=== PATIENT | male | born 1975 | race Caucasian/White ===

== ENCOUNTER → 2020-03-05 13:28 | Outpatient (BNVA) | payer OTHER, SELFPAY | PROVIDERS: PCP Internal Medicine Geriatric Medicine; Visit Provider Surgery | DX: Z76.89 Persons encountering health services in other specified circumstances (principal) ==

== ENCOUNTER 2020-03-13 10:36 | Outpatient (REF) | payer OTHER, SELFPAY ==
--- NOTE | 2020-03-13 | CT_ITS ---
EXAMINATION: CT ABDOMEN AND PELVIS WITHOUT CONTRAST CLINICAL INFORMATION: Inguinal hernia. COMPARISON: Previous abdominal ultrasound February 2017 TECHNIQUE: Multidetector volumetric imaging was performed from the superior aspect of the liver through the pubic symphysis. Sagittal and coronal reformatted images were obtained on the technologist's workstation. This CT examination was performed using dose optimization techniques as appropriate, variously including the following: *Automated exposure control *Adjustment of mA and/or kV according to patient size (this includes techniques or standardized protocols for targeted exams where dose is matched to indication/reason for exam; i.e. extremities or head) *Use of iterative reconstruction technique DLP: 457 mGy-cm FINDINGS: LUNG BASES: The visualized lung bases are unremarkable. LIVER, GALLBLADDER AND BILIARY TREE: The liver is normal in size, shape and attenuation. No focal hepatic lesion or biliary ductal dilatation is present. The gallbladder is unremarkable with no evidence of radiopaque gallstones, gallbladder wall thickening, or obvious pericholecystic inflammatory changes. PANCREAS: Unremarkable. SPLEEN: Unremarkable. ADRENAL GLANDS: Unremarkable. KIDNEYS AND URETERS: The kidneys are normal in size, shape and attenuation. No hydronephrosis, hydroureter or calculi seen. No perinephric stranding. BLADDER: Unremarkable. GASTROINTESTINAL TRACT: There is stool throughout the colon questionable for constipation. The small and large bowel are otherwise unremarkable. The appendix is unremarkable. The stomach is unremarkable. ABDOMINAL WALL: There is bilateral inguinal bulge. A definite inguinal hernia is not seen. There is a small umbilical hernia containing fat. LYMPH NODES: Normal. VASCULAR: Unremarkable. PELVIC VISCERA: Unremarkable. OSSEOUS STRUCTURES: There are degenerative changes of the lumbar spine. CT/CT abdomen pelvis wo con IMPRESSION: Bilateral inguinal bulge. No definite inguinal hernia. Small umbilical hernia containing fat. Stool throughout the colon questionable for constipation.
[2020-03-13] MEDS: Barium Sulfate Oral (Vanilla) 450 ML ORAL.SUSP 900 ML PO (09:41)
== END 2020-03-13 10:37 | disposition home or self-care (01) ==
LOC: HO.CT 10:36
PROVIDERS: PCP Internal Medicine Geriatric Medicine; Visit Provider Surgery
DX: K40.90 Unilateral inguinal hernia, without obstruction or gangrene, not specified as recurrent (principal)
CPT/HCPCS: 74176

== ENCOUNTER 2020-03-14 13:15 | Outpatient (REF) | payer OTHER, SELFPAY ==
--- NOTE | 2020-03-14 13:26 | XR_ITS ---
EXAMINATION: XR CHEST CLINICAL INFORMATION: Cough and wheezing. COMPARISON: None TECHNIQUE: 2 views of the chest were obtained. FINDINGS: The lungs are well-expanded and clear. The heart size and pulmonary vascularity is normal. There is mild dextroscoliosis of mid dorsal spine. No lytic process seen. XR/XR chest 2V IMPRESSION: Clear lungs. No acute process seen.
== END 2020-03-14 13:16 | disposition home or self-care (01) ==
LOC: HO.XRAY 13:15
PROVIDERS: PCP Internal Medicine Geriatric Medicine; Visit Provider Internal Medicine Geriatric Medicine
DX: R05 Cough (principal); R06.2 Wheezing
CPT/HCPCS: 71046

== ENCOUNTER 2020-12-25 08:30 | Outpatient (REF) | payer OTHER, SELFPAY ==
--- NOTE | ~2020-12-25 | US_ITS ---
EXAMINATION: US ABDOMEN LIMITED CLINICAL INFORMATION: Fatty liver. COMPARISON: CT abdomen and pelvis 03/13/2020. Ultrasound abdomen complete 03/05/2017. TECHNIQUE: Real-time imaging of the right upper quadrant abdominal viscera. FINDINGS: PANCREAS: Not well seen due to overlying bowel gas. LIVER: The liver is normal in size. The liver contour is normal. Increased hepatic parenchymal echogenicity. No focal hepatic lesion. There is no intrahepatic biliary duct dilatation seen. GALLBLADDER: Mildly contracted. No cholelithiasis, gallbladder wall thickening, or pericholecystic free fluid to suggest acute cholecystitis. COMMON BILE DUCT: Normal in caliber measuring 0.3 cm in diameter. RIGHT KIDNEY: Normal. No hydronephrosis. No renal calculi or focal parenchymal lesions. The kidney measures 12.0 cm in maximum dimension. FREE FLUID: None. US/US abdomen limited IMPRESSION: Increased hepatic parenchymal echogenicity, which can be seen in the setting of steatosis. Underlying hepatocellular disease cannot be excluded. No hepatic parenchymal lesion or biliary ductal dilatation.
== END 2020-12-25 08:31 | disposition home or self-care (01) ==
LOC: HO.US 08:30
PROVIDERS: PCP Internal Medicine Geriatric Medicine; Visit Provider Internal Medicine Geriatric Medicine
DX: K76.0 Fatty (change of) liver, not elsewhere classified (principal)
CPT/HCPCS: 76705

== ENCOUNTER 2022-11-23 14:46 | Outpatient (AMB) | payer OTHER, SELFPAY ==
--- NOTE | 2022-11-23 14:50 | MHC.OFFVIS ---
Intake Vital Signs 11/23/22 14:51 Height 5 ft 7 in Weight 212 lb 15.465 oz BMI 33.4 BP 140/83 H Blood Pressure Location Lt brachial Position Sitting Pulse 62 Intake Visit Reasons: colonoscopy screening Intake Note: Jin presents in office as a new.patient for a colonoscopy screening. PT CC: pt reports having no concerns pt denies any other GI Issues Photographer Lithographic Required: No Accompanied by: Self / Same As Patient Allergies bee pollen [BEE STINGS] Allergy (Severe, Unverified 11/23/22 14:50) ANAPHYLAXIS HPI colonoscopy screening HPI Details 47 year old? male here today for pre colonoscopy screening.? Patient was sent to us by his PCP.? This is his first colonoscopy screening.? Patient denies any gastrointestinal symptoms in the past or at present.? Denies any personal or family history of gastrointestinal disease, colon polyps, or cancer.? Denies history of difficulty with sedation or anesthesia in the past.? Negative for history of sleep apnea.? Denies any history of cardiac, renal, pulmonary, or hepatic disease.?? No history of infectious? diseases like hepatitis A, B, C, HIV or tuberculosis.? Patient is not on any anticoagulation therapy. [facility] Surgical History History of arthroplasty of left knee History of right inguinal hernia repair (~06/21/11) Social History Alcohol intake: never Review of Systems Const Denies weight gain and Denies weight loss ENT Reports no additional complaints, Denies dysphagia and Denies odynophagia Card Reports no additional complaints Resp Reports no additional complaints GI Denies abdominal pain, Denies belching, Denies melena, Denies bloating, Denies change in bowel habits, Denies dysphagia, Denies excessive flatus, Denies dyspepsia, Denies heartburn, Denies diarrhea, Denies loose stools, Denies nausea, Denies odynophagia and Denies vomiting Reports no additional complaints Musc Reports no additional complaints Neuro Reports no additional complaints Psych Reports no additional complaints Endo Reports no additional complaints Physical Exam Vital Signs: Last Vital Signs Pulse 62 11/23/22 14:51 BP 140/83 H 11/23/22 14:51 BMI result Body Mass Index 33.4 Const General: healthy appearing, no acute distress and well developed Nutritional Appearance: obese Orientation/consciousness: patient oriented x3 HEENT Head: Yes normal to inspection, Yes normocephalic and Yes atraumatic Face and sinus: Yes normal facial exam Mouth: Normal oral and palatal mucosa present Throat: Yes posterior oropharynx normal, Yes tonsils normal and Yes uvula midline Eyes General: appearance normal, both eyes and all related structures Neck Neck: Yes normal visual inspection, Yes full ROM and Yes trachea midline Thyroid: Thyroid normal Resp Effort & Inspection: normal respiratory effort, able to speak in complete sentences, no tracheal deviation and symmetric chest movement Auscultation: clear to auscultation bilaterally Cardio Rate: regular rate Heart sounds: S1 normal heart sound present and S2 normal heart sound present GI Inspection: Yes normal to inspection, No distended and Yes obesity Palpation (GI): Soft to palpation, not firm, nontender and No hepatosplenomegaly present Auscultation: normal bowel sounds General: Yes no CVA tenderness Back/Spine/Pelvis Back: no CVA tenderness Skin General skin exam: elasticity normal, turgor normal and dry skin Neuro General: patient oriented x3 Psych Appearance: grossly normal Mental Status: mental status grossly normal Speech and movement: Normal speech and movement present Assessment & Plan Assessment & Plan (1) Screen for colon cancer: Code(s): Z12.11 - Encounter for screening for malignant neoplasm of colon Plan: Patient denies any GI, cardiac or respiratory symptoms.? Denies any issues with anesthesia in the past.? Denies any history of sleep apnea.? No history infectious diseases in the past or present.? Not on any anticoagulation therapy.? No family or personal history of colon cancer or polyps.? Patient denies melena, hematochezia, unintentional weight loss or ribbon like stools.? Discussed at length the pre-procedure,? prep, diet & medications as well as what to expect prior, during and after the procedure.?? Stressed the importance of good bowel prep. ?Recommended the use of Vaseline or Calmoseptine OTC & baby wipes with bowel movements to promote comfort.? ?Patient verbalizes understanding and agrees to plan of care.? He was given the opportunity to ask questions and all questions answered.? We will see him after the procedure.? Medications: New bisacodyl (Dulcolax (bisacodyl)) take 2 tabs at noon the day before your colonoscopy 10 mg (2 x 5 mg) PO ONCE 2 tabs 0RF 1 day Z12.11 - Encounter for screening for malignant neoplasm of colon polyethylene glycol 3350 (Miralax) As directed by gastroenterology department at [facility] 238 grams PO ONCE 238 grams 0RF Z12.11 - Encounter for screening for malignant neoplasm of colon Coding Level of Care Code New Pt Level 3 (56476) Diagnoses Screen for colon cancer Z12.11 Time Spent (min) 40 Comment 30 minutes spent with patient and additional 10 minutes spent reviewing his records
[2022-11-23 14:51] VITALS: BP 140/83; PULSE 62; BMI 33.4
== END 2022-11-23 15:33 | disposition home or self-care (01) ==
PROVIDERS: PCP Internal Medicine Geriatric Medicine; Visit Provider Nurse Practitioner Family
DX: Z01.818 Encounter for other preprocedural examination (principal); Z12.11 Encounter for screening for malignant neoplasm of colon
CPT/HCPCS: 99203

== ENCOUNTER → 2022-11-23 14:46 | Outpatient (BNVA) | payer OTHER, SELFPAY | PROVIDERS: PCP Internal Medicine Geriatric Medicine; Visit Provider Nurse Practitioner Family ==

== ENCOUNTER 2023-06-18 08:59 | Day surgery (SDC) | payer OTHER, SELFPAY ==
[2023-06-16 14:07] VITALS: BMI 33.2
--- NOTE | 2023-06-17 12:00 | P.CONAN_ITS ---
HPI - Anesthesia Eval Consult details Narrative: 48yo M for Colonoscopy [facility] Active Problems Active Problems: All Active Problems (Updated 03/05/20 @ 14:06 by Matt Irizarry MD) Right inguinal hernia (Acute) Surgical History Surgical History History of arthroplasty of left knee History of right inguinal hernia repair (~06/21/11) Social History Social History Alcohol intake: never Meds Allergies Allergy/AdvReac Type Severity Reaction Status Date / Time bee pollen [BEE STINGS] Allergy Severe ANAPHYLAXIS Unverified 11/23/22 14:50 Home Medications Medication Instructions Recorded Confirmed Last Taken Type albuterol sulfate 90 mcg/actuation 2 puff PO Q4-6H PRN 03/05/20 Unknown History aerosol inhaler hydroxyzine HCl 25 mg tablet mg PO 03/05/20 Unknown History Exam Height,Weight and Vital Signs: Height 5 ft 7 in Weight 96.162 kg Assessment and Plan Assessment Anesthesia Assessment: Chart Reviewed
[2023-06-18 11:07] VITALS: BMI 32.9
[2023-06-18 11:14] VITALS: BP 135/82; PULSE 71; RESP 16; TEMP 36.3; O2SAT 98
[2023-06-18] MEDS: Lactated Ringers 1,000 ML 100 ML IVCONT (11:35)
--- NOTE | 2023-06-18 11:42 | MHC.SHP ---
Pre-Procedural Eval Section A - 24 Hr Update-Section A only Date of Service: 06/18/23 The patient is an INPATIENT: No The patient has been examined within 24 hours of the surgical procedure. The History & Physical has been completed within 30 days and I have reviewed it.: No Section B - Complete if H&P > 30 days Chief Complaint: Colon cancer screening Relevant Family History (Specify if Yes): No Relevant Social History: None Present Medications: see Short Stay Collaborative assessment Medical History: No relevant PMH History of Previous Operations: Relevant previous surgery/procedure and date(s) (History of arthroplasty of left knee History of right inguinal hernia repair (~06/21/11)) Allergies: Allergies Allergy/AdvReac Type Severity Reaction Status Date / Time bee pollen [BEE STINGS] Allergy Severe ANAPHYLAXIS Verified 06/18/23 11:34 Review of Systems Sugical H&P ROS: Negative: Constitution, Cardiovascular, Respiratory and Gastrointestinal Exam Surgical H&P Exam: Normal: Heart, Normal: Lungs, Normal: Extremities and Normal: Abdomen Plan Diagnosis/Plan: Unchanged I have reviewed the history and physical and performed a pertinent physical examination on my patient. No changes have occurred unless specified. Time Spent With Patient Time: Total time managing care of this patient today ____ minutes.
--- NOTE | 2023-06-18 13:08 | P.OP_ITS ---
Operative Note Operative Note Date of Service: 06/18/23 Narrative: COLONOSCOPY TILL CECUM WITH SNARE POLYPECTOMY Pre-op diagnosis: Colon cancer screening Post-op diagnosis:?Colon polyps, diverticulosis, hemorrhoids Endoscopist:? Hermila Diaz MD Anesthesia:?MAC Consent: Indications for the procedure and potential complications of bleeding, perforation, reaction to medications and missed diagnosis were discussed with the patient and informed consent was obtained. Instrument: Olympus PCF H 190 L variable stiffness pediatric colonoscope Monitoring: Vital signs and clinical assessment, intermittent blood pressure monitoring, continuous EKG monitoring, Pulse oximetry and Carbon Dioxide monitoring were done throughout the procedure. Please see anesthesia flowsheet. Colon withdrawl time was 24 minutes. Procedure: The patient was placed in the left lateral decubitis position and pre-procedure medications were administered. After a digital rectal examination of the ano-rectum, the video colonoscope was inserted into the rectum and advanced through the colon to the cecum. The colonoscope was slowly withdrawn in a retrograde panoramic fashion and the colon mucosa was carefully examined including a retroflexed view of the rectum. Findings and interventions are described below. Procedure Difficulty: Without difficulty Findings: Terminal Ileum: Not evaluated Cecum: Normal Ascending Colon: Normal Transverse Colon: Normal Descending Colon: Moderate diverticulosis Sigmoid Colon: A 12 - 15 mm sessile polyp - removed with a a hot snare. Moderate diverticulosis Rectum: Normal Ano-rectum: Moderate internal hemorrhoids Colon preparation: Good after some irrigation [place] Bowel Preparation Scale Right colon; 2 Transverse colon: 2 Left colon; 2 (0 = Unprepared colon segment with mucosa not seen due to solid stool that cannot be cleared. 1 = Portion of mucosa of the colon segment seen, but other areas of the colon segment not well seen due to staining, residual stool and/or opaque liquid. 2 = Minor amount of residual staining, small fragments of stool and/or opaque liquid, but mucosa of colon segment seen well. 3 = Entire mucosa of colon segment seen well with no residual staining, small fragments of stool or opaque liquid) Impression and Post Procedure Diagnosis: Colonoscopy Findings: One medium sized polyp removed Moderate diverticulosis seen in the left colon Moderate hemorrhoids on retroflexed exam. Plan: Await pathology results Patient has an appointment on 06/29/23 in the GI Clinic with Patricia Peraza FNP- [facility]. Repeat Colonoscopy interval based on path results - in 3-5 years if polyps are adenomatous and 10 years if polyps are hyperplastic. Above findings were reviewed with the patient and colon polyps and diverticulosis handouts were given in the discharge area
--- NOTE | 2023-06-18 13:32 | HO.ANESPROP2 ---
PMFSH Active Problems Active Problems: All Active Problems (Updated 06/18/23 @ 11:05 by Amanda Meadows RN) Right inguinal hernia (Acute) Past Medical History Medical History [place] Family History Family history of problems with anesthesia: No Surgical History Surgical History History of right inguinal hernia repair (~06/21/11) History of arthroplasty of left knee History of Problems with Anesthesia: No Social History Social History Alcohol intake: never Patient Tobacco Use Status: Former Tobacco user Use of substances other than those prescribed or required for medical reasons: No Are you DNR?: No Advance Directives: No Advance Directives Information Provided: Yes Meds Allergies Allergy/AdvReac Type Severity Reaction Status Date / Time bee pollen [BEE STINGS] Allergy Severe ANAPHYLAXIS Verified 06/18/23 11:34 Active Medications: Current Medications Lactated Ringer's (Lr) 1,000 mls @ 100 mls/hr IVCONT .Q10H STEVEN Last Admin: 06/18/23 11:35 Dose: 100 mls/hr Home Medications Medication Instructions Recorded Confirmed Last Taken Type hydroxyzine HCl 25 mg tablet mg PO 03/05/20 Unknown History Exam Height,Weight and Vital Signs: Height 5 ft 7 in Weight 95.311 kg Last Vital Signs Temp 97.3 F 06/18/23 11:14 Pulse 71 06/18/23 11:14 Resp 16 06/18/23 11:14 BP 135/82 06/18/23 11:14 Pulse Ox 98 06/18/23 11:14 O2 Del Method Room Air 06/18/23 11:14 Airway Mallampati Class: II TM Dist: >3cm Neck ROM: Full Heart: RRR Lungs: CTA Assessment and Plan Assessment Anesthesia Assessment: Anesthesia Plan Discussed Final Anesthetic Review Family History of Problems with Anesthesia: No History of Problems with Anesthesia: No NPO: Yes ASA Class: II Final Preanesthetic Review: Meds/Allgs Chart Reviewed, Consent Obtained/Reviewed and Anes Risks/Benef Reviewed Patient Risk: Low Anesthetic Plan Anesthetic Plan: MAC: Disposition: Standard PACU
[2023-06-18 13:50] VITALS: BP 92/55; PULSE 84; RESP 16; TEMP 36.2; O2SAT 95
[2023-06-18 14:05] VITALS: BP 109/69; PULSE 82; RESP 16; TEMP 36.3; O2SAT 98
--- NOTE | 2023-06-18 14:07 | HO.POSTANES ---
Post Anesthesia Evaluation Post Anesthesia Evaluation Date of Service: 06/18/23 Vital Signs: Vital Signs Temp Pulse Resp BP Pulse Ox O2 Del Method 06/18/23 13:50 97.1 F 84 16 92/55 L 95 Room Air 06/18/23 11:14 97.3 F 71 16 135/82 98 Room Air Anesthesia: Monitored Mental Status: Awake Pain Control: Satisfactory Nausea/Vomiting: None Hydration: Adequate Anesthesia-Related Issues: No Anes. Related Issues
--- NOTE | 2023-06-18 15:17 | HO.POSTANES ---
Post Anesthesia Evaluation Post Anesthesia Evaluation Date of Service: 06/18/23 Vital Signs: Vital Signs Temp Pulse Resp BP Pulse Ox O2 Del Method 06/18/23 14:05 97.3 F 82 16 109/69 98 Room Air 06/18/23 13:50 97.1 F 84 16 92/55 L 95 Room Air 06/18/23 11:14 97.3 F 71 16 135/82 98 Room Air Anesthesia: Monitored Mental Status: Awake Pain Control: Satisfactory Nausea/Vomiting: None Hydration: Adequate Anesthesia-Related Issues: No Anes. Related Issues
== END 2023-06-18 14:45 | disposition home or self-care (01) ==
PROVIDERS: PCP Internal Medicine Geriatric Medicine; Visit Provider Internal Medicine Gastroenterology
PROC: 0DJD8ZZ Inspection of Lower Intestinal Tract, Via Natural or Artificial Opening Endoscopic (ICD-10-PCS; CPT 45378; principal; 2023-06-18 12:20)
DX: Z12.11 Encounter for screening for malignant neoplasm of colon (principal); K63.5 Polyp of colon; K57.30 Diverticulosis of large intestine without perforation or abscess without bleeding; K64.8 Other hemorrhoids
CPT/HCPCS: 45385; 88305; J2704

== ENCOUNTER → 2023-06-18 08:59 | Outpatient (BNV) | payer OTHER, SELFPAY | PROVIDERS: PCP Internal Medicine Geriatric Medicine; Visit Provider Internal Medicine Gastroenterology | DX: Z12.11 Encounter for screening for malignant neoplasm of colon (principal); K63.5 Polyp of colon; K57.30 Diverticulosis of large intestine without perforation or abscess without bleeding; K64.8 Other hemorrhoids | CPT/HCPCS: 45385 ==

== ENCOUNTER 2023-06-29 07:59 | Outpatient (AMB) | payer OTHER, SELFPAY ==
--- NOTE | 2023-06-29 08:06 | MHC.OFFVIS ---
Intake Vital Signs 06/29/23 08:09 Height 5 ft 7 in Weight 209 lb BMI 32.7 BP 145/90 H Blood Pressure Location Lt brachial Position Sitting Pulse 87 Intake Visit Reasons: S/p colon Intake Note: Patient follow up for Colonoscopy results. Patient cc: abdominal bloating with burping on and off, right abdominal pain come and go. Denies any other GI issues. Deicer Inspector Electric Required: No Accompanied by: Self / Same As Patient Allergies bee pollen [BEE STINGS] Allergy (Severe, Verified 06/29/23 08:06) ANAPHYLAXIS HPI S/p colon HPI Details LAST VISIT Screen for colon cancer Patient denies any GI, cardiac or respiratory symptoms.? Denies any issues with anesthesia in the past.? Denies any history of sleep apnea.? No history infectious diseases in the past or present.? Not on any anticoagulation therapy.? No family or personal history of colon cancer or polyps.? Patient denies melena, hematochezia, unintentional weight loss or ribbon like stools.? Discussed at length the pre-procedure,? prep, diet & medications as well as what to expect prior, during and after the procedure.?? Stressed the importance of good bowel prep. ?Recommended the use of Vaseline or Calmoseptine OTC & baby wipes with bowel movements to promote comfort.? ?Patient verbalizes understanding and agrees to plan of care.? He was given the opportunity to ask questions and all questions answered.? We will see him after the procedure.? Plan Medications New bisacodyl (Dulcolax (bisacodyl)) take 2 tabs at noon the day before your colonoscopy 10 mg (2 x 5 mg) PO ONCE 2 tabs 0RF 1 day Z12.11 - Encounter for screening for malignant neoplasm of colon polyethylene glycol 3350 (Miralax) As directed by gastroenterology department at [facility] 238 grams PO ONCE 238 grams 0RF Z12.11 - Encounter for screening for malignant neoplasm of colon COLONOSCOPY Findings: Terminal Ileum: Not evaluated Cecum: Normal Ascending Colon: Normal Transverse Colon: Normal Descending Colon: Moderate diverticulosis Sigmoid Colon: A 12 - 15 mm sessile polyp - removed with a a hot snare. Moderate diverticulosis Rectum: Normal Ano-rectum: Moderate internal hemorrhoids Colon preparation: Good after some irrigation Saunemin Bowel Preparation Scale Right colon; 2 Transverse colon: 2 Left colon; 2 (0 = Unprepared colon segment with mucosa not seen due to solid stool that cannot be cleared. 1 = Portion of mucosa of the colon segment seen, but other areas of the colon segment not well seen due to staining, residual stool and/or opaque liquid. 2 = Minor amount of residual staining, small fragments of stool and/or opaque liquid, but mucosa of colon segment seen well. 3 = Entire mucosa of colon segment seen well with no residual staining, small fragments of stool or opaque liquid) Impression and Post Procedure Diagnosis: Colonoscopy Findings: One medium sized polyp removed Moderate diverticulosis seen in the left colon Moderate hemorrhoids on retroflexed exam. Plan: Await pathology results Patient has an appointment on 06/29/23 in the GI Clinic with Patricia Peraza FNP-BC. Repeat Colonoscopy interval based on path results - in 3-5 years if polyps are adenomatous and 10 years if polyps are hyperplastic. PATHOLOGY RESULTS Diagnosis Colon, sigmoid, polypectomy: Hyperplastic mucosal polyp. TODAY'S VISIT Patient is here today for follow-up and to discuss colonoscopy results. Patient denies any ill effects from the prep, anesthesia or procedure itself. Patient reports that he has been doing well. Moving his bowels without any issues. Hyperplastic mucosal polyp found in colonoscopy will be repeated in 10 years, sooner if clinically necessary. Patient denies any GI concerning symptoms. Occasional postprandial abdominal bloating. Reports that he is moving his bowels well without any issues. Denies any melena hematochezia, unintentional weight loss or ribbon like stools. Denies any dyspepsia, dysphagia or odynophagia. [facility] Medical History (Updated 06/29/23 @ 08:24 by SEFERINO Garay) Diverticulosis Lipoma Surgical History (Updated 06/29/23 @ 08:07 by Mariah Pagan) Hx of colonoscopy History of right inguinal hernia repair (~06/21/11) History of arthroplasty of left knee Social History Alcohol intake: never Patient Tobacco Use Status: Former Tobacco user Review of Systems Const Denies weight gain and Denies weight loss ENT Reports no additional complaints, Denies dysphagia and Denies odynophagia Card Reports no additional complaints Resp Reports no additional complaints GI Denies abdominal pain, Denies belching, Denies melena, Denies bloating, Denies change in bowel habits, Denies dysphagia, Denies excessive flatus, Denies dyspepsia, Denies heartburn, Denies diarrhea, Denies loose stools, Denies nausea, Denies odynophagia and Denies vomiting Reports no additional complaints Musc Reports no additional complaints Neuro Reports no additional complaints Psych Reports no additional complaints Endo Reports no additional complaints Physical Exam Vital Signs: Last Vital Signs Pulse 87 06/29/23 08:09 BP 145/90 H 06/29/23 08:09 BMI result Body Mass Index 32.7 Const General: healthy appearing, no acute distress and well developed Nutritional Appearance: obese Orientation/consciousness: patient oriented x3 Resp Effort & Inspection: normal respiratory effort, able to speak in complete sentences, no tracheal deviation and symmetric chest movement Auscultation: clear to auscultation bilaterally Cardio Rate: regular rate GI Inspection: Yes normal to inspection, No distended and Yes obesity Palpation (GI): Soft to palpation, not firm, nontender and No hepatosplenomegaly present Auscultation: normal bowel sounds General: Yes no CVA tenderness Back/Spine/Pelvis Back: no CVA tenderness Skin General skin exam: elasticity normal, turgor normal and dry skin Neuro General: patient oriented x3 Psych Appearance: grossly normal Mental Status: mental status grossly normal Assessment & Plan Assessment & Plan (1) Diverticulosis: Code(s): K57.90 - Diverticulosis of intestine, part unspecified, without perforation or abscess without bleeding (2) Internal hemorrhoids without complication: Code(s): K64.8 - Other hemorrhoids (3) Status post colonoscopy: Code(s): Z98.890 - Other specified postprocedural states (4) Postprandial abdominal bloating: Code(s): R14.0 - Abdominal distension (gaseous) Plan Hyperplastic polyp found in sigmoid colon. Colonoscopy in 10 years, sooner if clinically necessary. Patient denies any family history of CRC. High-fiber diet discussed with patient. Patient admits to occasional postprandial abdominal bloating discussed with patient low FODMAP diet. List of food recommended as well as list of food to avoid patient. Patient will follow-up in our office on as needed basis. Patient is agreeable to this plan and verbalizes understanding of instructions. He was given the opportunity to ask questions all questions answered. Thank you for allowing me to participate in his care Medications: New polyethylene glycol 3350 (Miralax) 17 grams PO DAILY 510 grams 2RF K59.00 - Constipation, unspecified Coding Level of Care Code Est Pt Level 3 (86630) Diagnoses Diverticulosis K57.90 Internal hemorrhoids without complication K64.8 Status post colonoscopy Z98.890 Postprandial abdominal bloating R14.0 Time Spent (min) 30 Comment 20 minutes spent with patient and additional 10 minutes spent reviewing his records
[2023-06-29 08:09] VITALS: BP 145/90; PULSE 87; BMI 32.7
== END 2023-06-29 08:37 | disposition home or self-care (01) ==
PROVIDERS: PCP Internal Medicine Geriatric Medicine; Visit Provider Nurse Practitioner Family
DX: K57.90 Diverticulosis of intestine, part unspecified, without perforation or abscess without bleeding (principal); K64.8 Other hemorrhoids; Z98.890 Other specified postprocedural states; R14.0 Abdominal distension (gaseous)
CPT/HCPCS: 99213

== ENCOUNTER → 2023-06-29 07:59 | Outpatient (BNVA) | payer OTHER, SELFPAY | PROVIDERS: PCP Internal Medicine Geriatric Medicine; Visit Provider Nurse Practitioner Family ==

== ENCOUNTER 2023-08-11 09:21 | Outpatient (REF) | payer OTHER, SELFPAY ==
[2023-08-11 11:18] LABS: MANUAL DIFF FLAG NO
[2023-08-11 11:27] LABS: Basophils Percent Auto 0.3 % (0-2); Eosinophils Absolute Auto 0.1 X10*3/uL (0.0-0.4); Hematocrit 46.2 % (42.0-52.0); Hemoglobin 15.8 g/dl (14.0-18.0); Imm Gran Abs Auto 0.01 X10*3/uL (0.00-0.03); Imm Gran Pct Auto 0.2 % (0.0-0.4); Lymphocytes Absolute Auto 2.4 X10*3/uL (1.2-4.9); Mean Corpuscular HGB Conc 34.2 g/dl (31.0-36.0); Mean Corpuscular Hemoglobin 30.5 pg (27.0-33.0); Mean Corpuscular Volume 89.2 fL (80.0-98.0); Mean Platelet Volume 11.5 fL (9.4-12.4); Monocytes Absolute Auto 0.5 X10*3/uL (0.1-1.2); Monocytes Percent Auto 8.5 % (2-11); Neutrophils Absolute Auto 2.8 x10*3/uL (2.0-8.3); Platelet Count 223 X10*3/uL (160-400); Red Blood Count 5.18 X10*6/uL (4.60-5.80); Red Cell Distribution Width 12.5 % (11.0-16.0); White Blood Count 5.8 X10*3/uL (4.8-10.8)
[2023-08-11 12:05] LABS: Alanine Aminotransferase 51 U/L (0-40); Albumin Level 4.5 g/dL (3.5-5.0); Alkaline Phosphatase 58 U/L (39-117); Anion Gap 14 (12-20); Aspartate Amino Transferase 46 U/L (5-37); Bilirubin Total 0.6 mg/dL (0.0-1.0); Blood Urea Nitrogen 21 mg/dL (9-16); Calcium 9.6 mg/dL (8.4-10.2); Carbon Dioxide 24 mmol/L (22-29); Chloride 106 mmol/L (96-108); Cholesterol 213 mg/dL (<200); Estimated Glomerular Filt Rate > 60; Glucose Random 93 mg/dL (60-115); HDL Cholesterol 54 mg/dL (>40); LDL Cholesterol Calculated 117 mg/dL (<100); Potassium 4.5 mmol/L (3.3-5.1); Sodium 139 mmol/L (135-145); Total Protein 8.1 g/dL (6.5-8.0); Triglycerides 213 mg/dL (<150)
== END 2023-08-11 09:22 | disposition home or self-care (01) ==
LOC: HO.HHCL 09:21
PROVIDERS: Visit Provider Internal Medicine Geriatric Medicine
DX: Z00.00 Encounter for general adult medical examination without abnormal findings (principal); Z13.1 Encounter for screening for diabetes mellitus; Z13.220 Encounter for screening for lipoid disorders
CPT/HCPCS: 36415; 80053; 80061; 85025

== ENCOUNTER 2024-01-03 08:29 | Outpatient (REF) | payer OTHER, SELFPAY ==
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
== END 2024-01-03 08:30 | disposition home or self-care (01) ==
LOC: HO.HHCX 08:29
PROVIDERS: Visit Provider Internal Medicine Geriatric Medicine
DX: M79.671 Pain in right foot (principal); G89.29 Other chronic pain
CPT/HCPCS: 73630

== ENCOUNTER 2024-05-02 09:39 | Outpatient (REF) | payer OTHER, SELFPAY ==
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
== END 2024-05-02 09:40 | disposition home or self-care (01) ==
LOC: HO.HHCX 09:39
PROVIDERS: Visit Provider Emergency Medicine
DX: M54.2 Cervicalgia (principal); M54.50 Low back pain, unspecified; V87.7XXD Person injured in collision between other specified motor vehicles (traffic), subsequent encounter
CPT/HCPCS: 72040; 72100

== ENCOUNTER 2024-05-22 07:30 | Outpatient (REF) | payer OTHER, SELFPAY ==
--- NOTE | ~2024-05-22 | US_ITS ---
CLINICAL HISTORY: SOFT TISSUE LUQ MAY BE RELATED TO BOWERL HERNIA US abdomen limited Comparison: [place] - US ABDOMEN LIMITED - 12/25/20 08:[address] - CT ABDOMEN PELVIS WO CON - 03/13/20 09:12 EST Findings: In the area of concern indicated by patient there is no mass, bowel containing hernia, fat containing hernia, lipoma or fluid collection. IMPRESSION: 1. Normal limited abdominal ultrasound. This document has been electronically signed by: Nelda Grace MD on 05/24/2024 05:38:45
== END 2024-05-22 07:31 | disposition home or self-care (01) ==
LOC: HO.US 07:30
PROVIDERS: PCP Internal Medicine Geriatric Medicine; Visit Provider Emergency Medicine
DX: R93.7 Abnormal findings on diagnostic imaging of other parts of musculoskeletal system (principal)
CPT/HCPCS: 76705

== ENCOUNTER → 2024-05-22 07:35 | Outpatient (BNV) | payer OTHER, SELFPAY | PROVIDERS: PCP Internal Medicine Geriatric Medicine; Visit Provider Radiology Diagnostic Radiology | DX: R10.9 Unspecified abdominal pain (principal) | CPT/HCPCS: 76705 ==

== ENCOUNTER 2024-09-21 10:14 | Outpatient (REF) | payer OTHER, SELFPAY ==
--- OUTSIDE RECORDS SUMMARY | 2024-09-21 11:14 | XMS_ITS | Encounter Summary ---
Author Organization [employer] [facility] Address [address] [place] [address] [place] [address] Care Team Providers Care Mortgage Processor Name Role Phone Name, Giovanni WEST Primary Care Provider [phone] Encounter Details Date Type Department Care Team (Latest Contact Info) Description 04/18/2020 Abstract [facility] CONVERSIONS Dental, Provider, DDS Social History Tobacco Use Types Packs/Day Years Used Date Smoking Tobacco: Never Assessed Sex and Gender Information Value Date Recorded Sex Assigned at Male 03/09/2022 10:25 AM EDT Legal Sex Male 10:25 AM EDT Gender Identity Male 03/09/2022 10:25 AM EDT Sexual Orientation Straight 03/09/2022 10 :25 AM EDT documented as of this encounter Plan of Treatment Upcoming Encounters Date Type Department Care Team (Late st Contact Info) Description 10/18/2024 8:00 AM EDT Office Visit [facility] DENTAL [address] [place] [address] Trinidad Smith [address] [place], [place] [phone] 12/27/2024 2:00 PM EDT Office Visit [facility] MEDICINE [address] [place] [address] Giovanni Anthony MD [address] [place] [address] documented as of this encounter Visit Diagnoses Not on filedocumented in this encounter Care Teams Mortgage Processor Relationship Specialty Start Date End Date Giovanni Anthony MD [address] [place] [address] PCP - General Family Medicine 05/29/15 documented as of this encounter
--- OUTSIDE RECORDS SUMMARY | 2024-09-21 11:14 | XMS_ITS | Encounter Summary ---
Author Organization [employer] [facility] Address [address] [place] [address] [place] [address] Care Team Providers Care Certified Professional Midwife Name Role Phone Name, Giovanni WEST Primary Care Provider [phone] Encounter Details Date Type Department Care Team (Latest Contact Info) Description 06/07/2018 Abstract [facility] CONVERSIONS Dental, Provider, DDS Social History Tobacco [...] Description 10/18/2024 8:00 AM EDT Office Visit [facility] DENTAL [address] [place] [address] Trinidad Smith [address] [place], [place] [phone] 12/27/2024 2:00 PM EDT Office Visit [facility] MEDICINE [address] [place] [address] Giovanni Anthony MD [address] [place] [address] documented as of this encounter Visit Diagnoses Not on filedocumented in this encounter Care Teams Certified Professional Midwife Relationship Specialty Start Date End Date Giovanni Anthony MD [address] [place] [address] PCP - General Family Medicine 05/29/15 documented as of this encounter
--- OUTSIDE RECORDS SUMMARY | 2024-09-21 11:14 | XMS_ITS | Encounter Summary ---
Author Organization [employer] Address [address] [facility] [address] [place] [address] Care Team Providers Care Insole Department Worker Name Role Phone Name, Giovanni WEST Primary Care Provider [phone] Reason for Visit * Reason Onset Date Comments CHART PREP 09/20/2024 Encounter Details Date Type Department Care Team ([facility] st Contact Info) Description 09/20/2024 Telephone [facility] MEDICINE [address] [place], [place] [phone] Name, MD Giovanni [address] [place] [address] CHART PREP Social History Tobacco Use Types Packs/Day Years Used Date Smoking Tobacco: Never Smokeless Tobacco: Never Alcohol Use Standard Drinks/Week Comments Yes 0 (1 standard drink = 0.6 oz pur e alcohol) Depression Answer Date Recorded Patient Health Questionnaire-9 Score 0 09/21/2024 Patient Health Questionnaire-9 Score 0 09/21/2024 Last PHQ-9: Questionnaire Data Not on file 0 09/21/2024 Housing Stability Answer Date Recorded What is your housing situation today? I have hamida gao 09/21/[address] you li ve. Do you have problems with any of the following? None of the above 09/21/2024 Food Insecurity Answer Date Recorded Within the past 12 months, y ou worried that your food would run out before you got money to buy more: Never True 09/21/2024 Within the past 12 months,th e food you bought just didn't last and you didn't have enough money to get more: Never True Transportation Answer Date Recorded In the past 12 months, has l ack of transportation kept you from medical appts, meetings, work or from getting things needed for daily living? No 09/21/2024 Utilities Answer Date Recorded In the past 12 months, has t he electric, gas, oil or water company threatened to shut off services in your home? No 09/21/2024 Depression Answer Date Recorded Patient Health Questionnaire-2 Score 0 09/21/2024 Internet Access Answer Date Recorded Internet Access Q1 Yes 09/21/2024 Internet Access Q2 Not on file 09/21/2024 Sex and Gender Information Value Date Recorded Sex Assigned at Male 03/09/2022 10:25 AM EDT Legal Sex Male 10:25 AM EDT Gender Identity Male 03/09/2022 10:25 AM EDT Sexual Orientation Straight 03/09/2022 10 :25 AM EDT documented as of this encounter Miscellaneous Notes * Telephone Encounter - Sravanthi Cruz [place] - 09/20/2024 2:25 PM EDT Chart Prep Labs: done from 08/10/24 Images: done ABD 05/22/24 Referrals: not applicable Vaccines due: PCV20, Hep A, and Zoster Screenings: not applicable Overdue care gaps: SBIRT, SDOH, PHQ-9, BENJY-7, Oral health screening, and Disability screen. documented in this encounter Plan of Treatment Upcoming Encounters Date Type Department Care Team (Late st Contact Info) Description 10/18/2024 8:00 AM EDT Office Visit [facility] DENTAL [address] [place] [address] Trinidad Smith [address] [place] [address] 12/27/2024 2:00 PM EDT Office Visit [facility] MEDICINE [address] [place] [address] NameGiovanni MD [address] [place] [address] documented as of this encounter Visit Diagnoses Not on filedocumented in this encounter Additional Health Concerns Assessment Noted Time PHQ-9 Depression Total Score: 0 08/19/19 23 9:11 AM EDT documented as of this encounter Care Teams Insole Department Worker Relationship Specialty Start Date End Date NameGiovanni MD [address] [place] [address] PCP - General Family Medicine 05/29/15 documented as of this encounter
--- OUTSIDE RECORDS SUMMARY | 2024-09-21 11:14 | XMS_ITS | Encounter Summary ---
Author Organization [employer] Address [address] [place] [address] Care Team Providers Care Spool Hauler Name Role Phone Name, Giovanni WEST Primary Care Provider [phone] Encounter Details Date Type Department Care Team (Late st Contact Info) Description 04/08/2023 Abstract [facility] MEDICINE [address] [place], [place] [phone] Name, MD Giovanni [address] [place], [place] [phone] Social History Tobacco Use Types Packs/Day Years Used Date Smoking Tobacco: Never Smokeless Tobacco: Never Alcohol Use Standard Drinks/Week Comments Yes 0 (1 standard drink = 0.6 oz pur e alcohol) Depression Answer Date Recorded Patient Health Questionnaire-9 Score 0 08/18/2022 Housing Stability Answer Date Recorded What is your housing situation today? I have hamida gao 02/23/[address] you li ve. Do you have problems with any of the following? None of the above 02/23/2023 Food Insecurity Answer Date Recorded Within the past 12 months, y ou worried that your food would run out before you got money to buy more: Never True 02/23/2023 Within the past 12 months,th e food you bought just didn't last and you didn't have enough money to get more: Never True Transportation Answer Date Recorded In the past 12 months, has l ack of transportation kept you from medical appts, meetings, work or from getting things needed for daily living? No 02/23/2023 Utilities Answer Date Recorded In the past 12 months, has t he electric, gas, oil or water company threatened to shut off services in your home? No 02/23/2023 Depression Answer Date Recorded Patient Health Questionnaire-2 Score 0 08/18/2022 Sex and Gender Information Value Date Recorded Sex Assigned at Male 03/09/2022 10:25 AM EDT Legal Sex Male 10:25 AM EDT Gender Identity Male 03/09/2022 10:25 AM EDT Sexual Orientation Straight 03/09/2022 10 :25 AM EDT documented as of this encounter Plan of Treatment Upcoming Encounters Date Type Department Care Team (Late st Contact Info) Description 10/18/2024 8:00 AM EDT Office Visit [facility] DENTAL [address] [place] [address] Shimon Smithine [address] [place], [place] [phone] 12/27/2024 2:00 PM EDT Office Visit [facility] MEDICINE [address] [place] [address] NameGiovanni MD [address] [place] [address] documented as of this encounter Visit Diagnoses Not on filedocumented in this encounter Additional Health Concerns Assessment Noted Time PHQ-9 Depression Total Score: 0 08/19/19 23 9:11 AM EDT documented as of this encounter Care Teams Spool Hauler Relationship Specialty Start Date End Date NameGiovanni MD [address] [place] [address] PCP - General Family Medicine 05/29/15 documented as of this encounter
--- OUTSIDE RECORDS SUMMARY | 2024-09-21 11:14 | XMS_ITS | Encounter Summary ---
Author Organization [employer] Address [address] [place] [address] [address] [place] [address] Care Team Providers Care Electron Microprobe Operator Name Role Phone Name, Goivanni WEST Primary Care Provider [phone] Encounter Details Date Type Department Care Team (Late st Contact Info) Description 04/23/2022 Orders Only [facility] [address] [place], [place] [phone] Wen Hutchinson LPN Social History Tobacco Use Types Packs/Day Years [...] Description 10/18/2024 8:00 AM EDT Office Visit [facility] DENTAL [address] [place], [place] [phone] Trinidad Smith [address] [place], [place] [phone] 12/27/2024 2:00 PM EDT Office Visit [facility] MEDICINE [address] [place], [place] [phone] Name, MD Giovanni [address] [place] [address] documented as of this encounter Visit Diagnoses Not on filedocumented in this encounter Care Teams Electron Microprobe Operator Relationship Specialty Start Date End Date Name, MD Giovanni [address] [place] [address] PCP - General Family Medicine 05/29/15 documented as of this encounter
--- OUTSIDE RECORDS SUMMARY | 2024-09-21 11:14 | XMS_ITS | Clinical Summary ---
Author Organization [employer] Address [address] [place] [address] 7[address] [place] [address] Care Team Providers Care Field Operator Name Role Phone Name, Giovanni WEST Primary Care Provider [phone] Allergies Active Allergy Reactions Criticality Noted Date Comments Bee Pollen Anaphylaxis High 06/15/2022 Bee Venom 09/21/2018 Medications acetaminophen (Tylenol) 500 MG tablet Take 2 tablets by mouth in the morning and 2 tablets at noon and 2 tablets in the evening and 2 tablets before bedtime. 07/10/19 22 Active EPINEPHrine (EpiPen 2-Jt) 0.3 MG/0.3ML injection syringe Inject 0.3 mL into the muscle. 02/11/20 22 Active albuterol 108 (90 Base) MCG/ACT inhaler Inhale 2 puffs every 6 (six) hours if needed for wheezing. 18 g 11 08/27/19 24 Active triamcinolone (Kenalog) 0.1 % ointmentIndicat ions:Eczema, unspecified type Apply topically 2 times daily. 80 g 2 09/22/19 25 Active clobetasol (Temovate) 0.05 % gel Apply thin layer to the affected skin twice a day 60 g 09/22/19 25 Active hydrOXYzine HCl (Atarax) 25 MG tabletIndicatio ns:Insomnia, unspecified type Take 1 tablet (25 mg) by mouth if needed at bedtime for itching. 90 tablet 2 09/22/19 25 026 Active meloxicam (Mobic) 7.5 MG tablet Take 1 tablet (7.5 mg) by mouth Once per day. 30 tablet 11 09/22/19 25 026 Active mometasone (Elocon) 0.1 % cream Apply topically at bed time. 02/11/20 22 025 Discontinued( erapy completed) triamcinolone (Kenalog) 0.1 % ointmentIndicat ions:Eczema, unspecified type APPLY TO THE AFFECTED AREA(S) SPARINGLY TWICE DAILY 80 g 2 09/30/19 23 025 Discontinued( erapy completed) hydrOXYzine HCl (Atarax) 25 MG tabletIndicatio ns:Insomnia, unspecified type TAKE 1 TABLET BY MOUTH AT BEDTIME NEEDED (for itching) 90 tablet 2 08/13/19 24 025 Discontinued(Re order (will not trigger notification to Pharmacy)) Active Problems Problem Noted Date Diagnosed Date Rosacea 09/21/2024 Essential hypertension 08/18/2022 Onychomycosis 05/16/2018 02/23/2023 Chronic neck pain 03/04/2017 02/23/2023 Steatosis of liver 02/07/2016 Lipoma of skin and subcutaneous tissue of neck 0 02/07/2016 02/23/2023 Cervical spondylosis 07/09/2015 Resolved Problems Problem Noted Date Diagnosed Date Resolved Date Right inguinal hernia 08/11/20232024 Right inguinal pain 02/23/2023 02/23/2023 09/22/19 25 Encounters Date Type Department Care Team Description 09/21/2024 9:15 AM EDT Office Visit [facility] [address] [place] [address] Giovanni Anthony MD Essential hypertension (Primary Dx); Obesity (BMI 30-39.9); Screening for cholesterol level; Prediabetes; Vaccine refused by patient; Screening for prostate cancer; Eczema, unspecified type; Insomnia, unspecified type; Tinnitus of both ears 09/21/2024 Travel 09/20/2024 Telephone [facility] [address] [place], [place] [phone] Giovanni Anthony MD CHART PREP 09/15/2024 Patient Outreach [facility] [address] [place], [place] [phone] Giovanni Anthony MD Pre-visit Planning ([facility] unable to reach [facility]) 06/28/2024 Telephone [facility] [address] [place], [place] [phone] Joseph Pérez MA Apirl recalls from Last 3 Months Immunizations Immunization Administration Dates Next Due Hep B, Unspecified 12/06/2020 Tdap 08/19/2021,08/13/2011 Social History Tobacco Use Types Packs/Day Years Used Date Smoking Tobacco: Never Smokeless Tobacco: Never Tobacco Cessation:Counseling Given: Not Answered Alcohol Use Standard Drinks/Week Comments Not Currently 0 (1 standard drink = 0.6 oz [...] Orientation Straight 03/09/2022 10 :25 AM EDT Last Filed Vital Signs Vital Sign Reading Time Taken Comments Blood Pressure 115/73 09/21/2024 9:32 AM EDT Pulse 75 09/21/2024 9:22 AM EDT Temperature 36.6 ??C (97.9 ??F) 09/21/2024 9:22 AM ED T Respiratory Rate 18 09/21/2024 9:22 AM EDT Oxygen Saturation 98% 09/21/2024 9:22 AM EDT Inhaled Oxygen Concentration - - Weight 96.3 kg (212 lb 3.2 oz) 09/21/2024 9:22 A M EDT Height 170.2 cm (5' 7 ) 09/21/2024 9:22 AM EDT Body Mass Index 33.24 09/21/2024 9:22 AM EDT Plan of Treatment Upcoming Encounters Date Type Department Care Team (Late st Contact Info) Description 10/18/2024 8:00 AM EDT Office Visit [facility] [address] [place], [place] [phone] Trinidad Smith [address] [place], [place] [phone] 12/27/2024 2:00 PM EDT Office Visit [facility] [address] [place], [place] [phone] Name, MD Giovanni [address] [place] [address] Health Maintenance Due Date Last Done Comments CT Colonography 1973 Dental X-Ray: Full Mouth 1973 FIT DNA/Cologuard 1973 FIT 1973 FOBT 1973 HIV Screening 1973 Sigmoidoscopy 1973 Family Planning (PISQ) 1988 Hepatitis A Vaccines (1 of 2 - Risk 2-dose series) 1992 Hepatitis B Vaccines (2 of 3 - 19+ 3-dose series) 01/03/2021 12/06/2020 Pneumococcal Vaccine: 50+ Years (1 of 1 - PCV) 2023 Zoster Vaccines (1 of 2) 2023 Diabetes: Hemoglobin A1C 08/27/2023 023, 02/02/2022, 04/12/2019 COVID-19 Vaccine ( season) 2024 03/21/2021, 06/20/2020, 05/23/2020 Influenza Vaccine (#1) 2024 Dental X-Ray: Bitewings 02/25/2024 02/23/2023 Dental Oral Exam 03/08/2024 09/06/2023 Dental Prophylaxis 10/17/2024 04/17/2024, 0 09/06/2023, 02/23/2023, Additional history exists Alcohol/Substance Use Screening 09/21/2025 09/21/2024 Depression Screening 09/21/2025 09/21/2024, 09/22/19 25 SDOH Screening 09/21/2025 09/21/2024 Tobacco Screening 09/21/2025 09/21/2024 Lipid Panel 08/10/2028 08/11/2023, 08/08, 02/02/2022, Additional history exists DTaP/Tdap/Td Vaccines (3 - Td or Tdap) 08/20/2031 08/19/2021, 08/13/2011 Colonoscopy 06/18/2033 06/18/2023 Colorectal Cancer Screening 06/18/2033 RSV Patients and Patients Aged 60 years or older (1 - 1-dose 75+ series) 2048 Hepatitis C Screening Completed 12/06/2020 HIB Vaccines Aged Out No longer eligi ble based on patient's age to complete this topic HPV Vaccines Aged Out No longer eligi ble based on patient's age to complete this topic IPV Vaccines Aged Out No longer eligi ble based on patient's age to complete this topic Meningococcal B Vaccine Aged Out No l onger eligible based on patient's age to complete this topic Meningococcal Vaccine Aged Out No marleny anu eligible based on patient's age to complete this topic RSV under 20 months Aged Out No longe r eligible based on patient's age to complete this topic Rotavirus Vaccines Aged Out No longer eligible based on patient's age to complete this topic Procedures Procedure Name Priority Date/Time Associated Diagnosis Comments PROPHYLAXIS - ADULT Routine 04/17/2024 4 :00 PM EST PERIODIC ORAL EVALUATION - ESTABLISHED PATIENT Routine 09/06/2023 4:00 PM EDT LIPID PANEL, STANDARD Routine 08/11/2023 9:22 AM EDT PE (physical exam), annual Screening for diabetes mellitus Screening for cholesterol level HM COLONOSCOPY Routine 06/18/2023 BITEWINGS - 4 RADIOGRAPHIC IMAGES Routine 02/23/2023 3:00 PM EDT HEMOGLOBIN A1C Routine 08/26/2022 12:34 PM EDT Screening for diabetes mellitus TEE HISTORICAL HEPATITIS C AB W/REFL TO HCV RNA, QN, PCR Routine 12/06/2020 9:50 AM EDT from Last 3 Months or Most Recently Relevant to Health Maintenance Results * (ABNORMAL) Lipid Panel, Standard (08/11/2023 9:22 AM EDT) Triglycerides 213(H) <150 mg/dL [facility] Comment:Desirable Triglyceri de: less than 150 mg/dLBorderline High Triglyceride 150-199 mg/dLHigh Triglyceride: 200-499 mg/dLVery High Triglyceride: greater than or equal to 5OO mg/dL Cholesterol 213(H) <200 mg/dL [facility] Comment:Desirable Cholestero l: less than 200 mg/dLBorderline High Cholesterol: 200-239 mg/dLHigh Cholesterol: greater than 239 mg/dL LDL Cholesterol Calculated 117(H) <100 mg/dL [facility] Comment:Desirable LDL: less than 100 mg/dLNear Optimal/Above Optimal LDL: 110- 129 mg/dLBorderline High LDL: 130-159 mg/dLHigh LDL: 160-189 mg/dLVery High LDL: greater than or equal to 190 mg/dL HDL Cholesterol 54 >40 mg/dL [facility] Comment:Desirable HDL: great er than 40 mg/dL Note: This HDL assay may give artificially low results in patients with liver disease. Blood Venous blood specimen / Unknown 08/11/2023 9:22 AM EDT 08/11/2023 11:14 AM EDT us Giovanni Anthony MD LAB BLOOD ORDERABLES Final Resul t [facility] [address] [place] [phone] * Colonoscopy (06/18/2023) [facility] Colonoscopy Normal Normal us Giovanni Anthony MD HEALTH MAINTENANCE Final Result * (ABNORMAL) Hemoglobin A1c (08/26/2022 12:34 PM EDT) [facility] Hemoglobin A1c 5.9(H) <5.7 % of total Hgb [employer] Comment: For someone without known diabetes, a hemoglobin A1c value between 5.7% and 6.4% is consistent with prediabetes and should be confirmed with a follow-up test. For someone with known diabetes, a value <7% indicates that their diabetes is well controlled. A1c targets should be individualized based on duration of diabetes, age, comorbid conditions, and other considerations. This assay result is consistent with an increased risk of diabetes. Currently, no consensus exists regarding use of hemoglobin A1c for diagnosis of diabetes for children. Blood Venous blood specimen / Unknown 08/26/2022 12:34 PM EDT 08/26/2022 12:36 PM EDT Narrative [facility] - 08/27/2022 4:55 AM EDT FASTING:YES FASTING: YES us Giovanni Anthony MD LAB BLOOD ORDERABLES Final Resul t [facility] [address], [place] [address] [facility] [address] [place] [address] * HEPATITIS C AB W/REFL TO HCV RNA, QN, PCR (12/06/2020 9:50 AM EDT) [facility] HEPATITIS C ANTIBODY NON-REACT ESEQUIEL NON-REACT [facility] INDEX 0.01 <1.00 [facility] Comment: ?? HCV antibody was non-reactive. There is no laboratory ?? evidence of HCV infection. ?? In most cases, no further action is required. However, if recent HCV exposure is suspected, a test for HCV RNA (test code 00981) is suggested. ?? For additional information please refer to http://education.Rackup/faq/CYD06d5 (This link is being provided for informational/ educational purposes only.) ?? 12/06/2020 9:50 AM EDT us Giovanni Anthony MD HISTORICAL/NON ORDERABLE LABS Fi nal Result [facility] [address] from Last 3 Months or Most Recently Relevant to Health Maintenance Insurance [facility] , [address] [place] [address] DENTAL - HSN PARTIAL (MEDICAID) STATE [facility] [employer] Care Teams Field Operator Relationship Specialty Start Date End Date Name, MD Giovanni [address] [place] [id number] PCP - General Family Medicine 05/29/15
--- OUTSIDE RECORDS SUMMARY | 2024-09-21 11:14 | XMS_ITS | Encounter Summary ---
Author Organization [employer] [facility] Address [address] [place] [address] [place] [address] Care Team Providers Care Auto Glass Installer Name Role Phone Name, Giovanni WEST Primary Care Provider [phone] Encounter Details Date Type Department Care Team (Latest Contact Info) Description 12/23/2021 Abstract [facility] CONVERSIONS Dental, Provider, DDS Social [...] Description 10/18/2024 8:00 AM EDT Office Visit [facility] [address] [place] [address] Trinidad Smith [address] [place], [place] [phone] 12/27/2024 2:00 PM EDT Office Visit [facility] MED[facility] [address] [place] [address] NameGiovanni MD [address] [place] [address] documented as of this encounter Visit Diagnoses Not on filedocumented in this encounter Care Teams Auto Glass Installer Relationship Specialty Start Date End Date Giovanni Anthony MD [address] [place] [address] PCP - General Family Medicine 05/29/15 documented as of this encounter
--- OUTSIDE RECORDS SUMMARY | 2024-09-21 11:14 | XMS_ITS | Encounter Summary ---
Author Organization [employer] Address [address] 7t [place] [address] Care Team Providers Care Polysomnographic Technologist Name Role Phone Name, Giovanni WEST Primary Care Provider [phone] Encounter Details Date Type Department Care Team (Late st Contact Info) Description 09/21/2024 9:15 AM EDT Office Visit [facility] [address] [place], [place] [phone] Name, MD Giovanni [address] [place] [address] Essential hypertension (Primary Dx); Obesity (BMI 30-39.9); Screening for cholesterol level; Prediabetes; Vaccine refused by patient; Screening for prostate cancer; Eczema, unspecified type; Insomnia, unspecified type; Tinnitus of both ears Social History Tobacco Use Types Packs/Day Years [...] AM EDT documented as of this encounter Last Filed Vital Signs Vital Sign Reading [...] Mass Index 33.24 09/21/2024 9:22 AM EDT documented in this encounter Functional Status * Over the past 2 weeks, how often have you been bothered by any of the following problems? Question Answer Date of Assessment Author Patient Health Questionnaire -2 Score 0 09/21/2024 9:27 AM EDT Rich Pérez MA * Little interest or pleasure in doing things Answer Date of Assessment Author Not at all 09/21/2024 9:27 AM EDT Joseph Pérez MA * Feeling down, depressed, or hopeless Answer Date of Assessment Author Not at all 09/21/2024 9:27 AM Joseph Powell MA * Trouble falling or staying asleep, or sleeping too much Answer Date of Assessment Author Not at all 09/21/2024 9:27 AM Joseph Powell MA * Feeling tired or having little energy Answer Date of Assessment Author Not at all 09/21/2024 9:27 AM Joseph Powell MA * Poor appetite or overeating Answer Date of Assessment Author Not at all 09/21/2024 9:27 AM Joseph Powell MA * Feeling bad about yourself - or that you are a failure or have let yourself or your family down Answer Date of Assessment Author Not at all 09/21/2024 9:27 AM Joseph Powell MA * Trouble concentrating on things, such as reading the newspaper or watching television Answer Date of Assessment Author Not at all 09/21/2024 9:27 AM Joseph Powell MA * Moving or speaking so slowly that other people could have noticed? Or the opposite - being so fidgety or restless that you have been moving around a lot more than usual. Answer Date of Assessment Author Not at all 09/21/2024 9:27 AM Joseph Powell MA * Thoughts that you would be better off or hurting yourself in some way Answer Date of Assessment Author Not at all 09/21/2024 9:27 AM Joseph Powell MA * Patient Health Questionnaire-9 Score Answer Date of Assessment Author 0 09/21/2024 9:27 AM Joseph Powell MA * Over the last 2 weeks, how often have you been bothered by any of the following problems? Question Answer Date of Assessment Author Feeling nervous, anxious, or on edge 0 09/21/2024 9:27 AM Rich Powell MA Not being able to stop or control worrying 0 09/21/2024 9:27 AM Rich Powell MA Worrying too much about different things 0 09/21/2024 9:27 AM EDT Rich Pérez MA Trouble relaxing 0 09/21/2024 9:27 AM EDT Joseph Guerra MA Being so restless that it is hard to sit still 0 09/21/2024 9:27 AM EDT Rich Pérez MA Becoming easily annoyed or irritable 0 09/21/2024 9:27 AM EDT Rich Pérez MA Feeling afraid as if somethi ng awful might happen 0 09/21/2024 9:27 AM EDT Rich Pérez MA BENJY-7 Total Score 0 09/21/2024 9:27 AM EDT Joseph Pérez MA documented as of this encounter Plan of Treatment Upcoming Encounters Date Type Department Care Team (Late st Contact Info) Description 10/18/2024 8:00 AM EDT Office Visit [facility] [address] [place] [address] Trinidad Smith [address] [place] [address] 12/27/2024 2:00 PM EDT Office Visit [facility] MEDICINE [address] [place] [address] Name, MD Giovanni [address] [place] [address] Scheduled Orders Name Type Priority Associated Diagnoses Orde r Schedule CBC auto differential Lab Routine Essential hypertension Obesity (BMI 30-39.9) Screening for cholesterol level Prediabetes Vaccine refused by patient Screening for prostate cancer Eczema, unspecified type Insomnia, unspecified type Expected: 09/21/2024 (Approximate), Expires: 09/21/2025 Comprehensive Metabolic Panel Lab Routine Essential hypertension Obesity (BMI 30-39.9) Screening for cholesterol level Prediabetes Vaccine refused by patient Screening for prostate cancer Eczema, unspecified type Insomnia, unspecified type Expected: 09/21/2024 (Approximate), Expires: 09/21/2025 Lipid Panel, Standard Lab Routine Essential hypertension Obesity (BMI 30-39.9) Screening for cholesterol level Prediabetes Vaccine refused by patient Screening for prostate cancer Eczema, unspecified type Insomnia, unspecified type Expected: 09/21/2024 (Approximate), Expires: 09/21/2025 PSA,Total Lab Routine Essential hypertension Obesity (BMI 30-39.9) Screening for cholesterol level Prediabetes Vaccine refused by patient Screening for prostate cancer Eczema, unspecified type Insomnia, unspecified type Expected: 09/21/2024, Expires: 09/21/2025 documented as of this encounter Visit Diagnoses Diagnosis Essential hypertension- Primary Unspecified essential hypertension Obesity (BMI 30-39.9) Screening for cholesterol level Prediabetes Other abnormal glucose Vaccine refused by patient Screening for prostate cancer Special screening for malignant neoplasm of prostate Eczema, unspecified type Insomnia, unspecified type Tinnitus of both ears Unspecified tinnitus documented in this encounter Additional Health Concerns Assessment Noted Time PHQ-9 Depression Total Score: 0 09/22/19 25 9:27 AM EDT documented as of this encounter Care Teams Polysomnographic Technologist Relationship Specialty Start Date End Date Name, MD Giovanni [address] [place] [address] PCP - General Family Medicine 05/29/15 documented as of this encounter
--- OUTSIDE RECORDS SUMMARY | 2024-09-21 11:14 | XMS_ITS | Encounter Summary ---
Author Organization [employer] Address [address] [place] [address] Care Team Providers Care Exercise Equipment Specialist Name Role Phone Name, Giovanni WEST Primary Care Provider [phone] Encounter Details Date Type Department Care Team (Latest Contact Info) Description 09/21/2024 Travel Social History Tobacco Use Types Packs/Day Years Used Date Smoking Tobacco: Never Smokeless Tobacco: Never Alcohol Use Standard Drinks/Week Comments Not Currently [...] AM EDT documented as of this encounter Functional Status * Over the past 2 weeks, how often have you been bothered by any of the following problems? Question Answer Date of Assessment Author Patient Health Questionnaire -2 Score 0 09/21/2024 9:27 AM EDT Rich Pérez MA * Little interest or pleasure in doing things Answer Date of Assessment Author Not at all 09/21/2024 9:27 AM ABDULLAHIT Joseph Pérez MA * Feeling down, depressed, or hopeless Answer Date of Assessment Author Not at all 09/21/2024 9:27 AM ABDULLAHIT Joseph Pérez MA * Trouble falling or staying asleep, or sleeping too much Answer Date of Assessment Author Not at all 09/21/2024 9:27 AM EDT Joseph Pérez MA * Feeling tired or having little [...] or on edge 0 09/21/2024 9:27 AM ABDULLAHIT Rich Pérez MA Not being able to stop or control worrying 0 09/21/2024 9:27 AM ABDULLAHIT Rich Pérez MA Worrying too much about different things 0 09/21/2024 9:27 AM ABDULLAHIT Rich Pérez MA Trouble relaxing 0 09/21/2024 9:27 AM EDT Joseph Guerra MA Being so restless that it is hard to sit still 0 09/21/2024 9:27 AM ABDULLAHIT Rich Pérez MA Becoming easily annoyed or irritable 0 09/21/2024 9:27 AM ABDULLAHIT Rich Pérez MA Feeling afraid as if somethi ng awful might happen 0 09/21/2024 9:27 AM Rich Powell MA BENJY-7 Total Score 0 09/21/2024 9:27 AM Joseph Powell MA documented as of this encounter Plan of Treatment Upcoming Encounters Date Type Department Care Team (Late st Contact Info) Description 10/18/2024 8:00 AM EDT Office Visit [facility] [address] [place] [phone] Trinidad Smith [address] [place], [place] [phone] 12/27/2024 2:00 PM EDT Office Visit [facility] MEDICINE [address] [place] [address] Name, MD Giovanni [address] [place] [address] documented as of this encounter Visit Diagnoses Not on filedocumented in this encounter Additional Health Concerns Assessment Noted Time PHQ-9 Depression Total Score: 0 09/22/19 25 9:27 AM EDT documented as of this encounter Care Teams Exercise Equipment Specialist Relationship Specialty Start Date End Date Name, MD Giovanni [address] [place] [address] PCP - General Family Medicine 05/29/15 documented as of this encounter
[2024-09-21 11:36] LABS: MANUAL DIFF FLAG NO
[2024-09-21 11:51] LABS: Basophils Percent Auto 0.4 % (0-2); Eosinophils Percent Auto 0.8 % (0-4); Hematocrit 43.6 % (42.0-52.0); Hemoglobin 14.7 g/dl (14.0-18.0); Imm Gran Abs Auto 0.01 X10*3/uL (0.00-0.03); Imm Gran Pct Auto 0.2 % (0.0-0.4); Lymphocytes Absolute Auto 2.4 X10*3/uL (1.2-4.9); Lymphocytes Percent Auto 49.1 % (20-40); Mean Corpuscular HGB Conc 33.7 g/dl (31.0-36.0); Mean Corpuscular Hemoglobin 30.2 pg (27.0-33.0); Mean Corpuscular Volume 89.7 fL (80.0-98.0); Mean Platelet Volume 10.1 fL (9.4-12.4); Monocytes Absolute Auto 0.5 X10*3/uL (0.1-1.2); Monocytes Percent Auto 9.3 % (2-11); Neutrophils Percent Auto 40.2 % (45-73); Platelet Count 248 X10*3/uL (160-400); Red Blood Count 4.86 X10*6/uL (4.60-5.80); Red Cell Distribution Width 12.8 % (11.0-16.0)
[2024-09-21 12:06] LABS: Alanine Aminotransferase 72 U/L (0-40); Albumin Level 4.6 g/dL (3.5-5.0); Alkaline Phosphatase 52 U/L (39-117); Anion Gap 11 (12-20); Aspartate Amino Transferase 56 U/L (5-37); Bilirubin Total 0.5 mg/dL (0.0-1.0); Blood Urea Nitrogen 20 mg/dL (9-16); Calcium 9.5 mg/dL (8.4-10.2); Carbon Dioxide 25 mmol/L (22-29); Chloride 108 mmol/L (96-108); Cholesterol 183 mg/dL (<200); Estimated Glomerular Filt Rate > 60; Glucose Random 100 mg/dL (60-115); HDL Cholesterol 52 mg/dL (>40); LDL Cholesterol Calculated 107 mg/dL (<100); Potassium 4.9 mmol/L (3.3-5.1); Sodium 139 mmol/L (135-145); Total Protein 7.5 g/dL (6.5-8.0); Triglycerides 122 mg/dL (<150)
[2024-09-21 12:20] LABS: Prostate Specific Antigen 2.13 ng/mL (<0.05-4.0)
== END 2024-09-21 10:15 | disposition home or self-care (01) ==
LOC: HO.HHCL 10:14
PROVIDERS: Visit Provider Internal Medicine Geriatric Medicine
DX: Z13.220 Encounter for screening for lipoid disorders (principal); Z12.5 Encounter for screening for malignant neoplasm of prostate; L30.9 Dermatitis, unspecified; I10 Essential (primary) hypertension; E66.9 Obesity, unspecified; R73.03 Prediabetes; G47.00 Insomnia, unspecified
CPT/HCPCS: 36415; 80053; 80061; 84153; 85025

== ENCOUNTER 2024-11-14 07:23 | Outpatient (REF) | payer OTHER, SELFPAY ==
--- NOTE | ~2024-11-14 | US_ITS ---
EXAMINATION: US ABDOMEN LIMITED WITH LIVER ELASTOGRAPHY HISTORY: fatty liver, transaminitis TECHNIQUE: Real-time grayscale ultrasound imaging of the right upper quadrant was performed and images were reviewed. COMPARISON: Comparison is made with the prior examination dated 12/25/2020. FINDINGS: Liver: The right lobe of the liver measures 16.8 cm in size. The left lobe of the liver measures 11.4 cm in size. The liver demonstrates normal homogeneous echotexture. No focal mass or intrahepatic biliary ductal dilatation is identified. There is normal hepatopedal flow in the portal vein. Ultrasound elastography of the liver was performed with 10 separate measurements of the liver parenchyma with the patient in the supine position. Measurements were obtained approximately 2 cm below Sophie's capsule and perpendicular to the capsule. The median shear wave velocity is 2.00 m/s. The interquartile range/median (IQR/median) is 0.21. Gallbladder and biliary tree: The gallbladder is mildly contracted, without evidence of calculi, wall thickening, or pericholecystic fluid. There is no sonographic Chatman sign. The common bile duct is normal in caliber measuring 2 mm. Right Kidney: The right kidney measures 11.2 cm in length. The right kidney is unremarkable, without evidence of masses, hydronephrosis, or calculi. Pancreas: The pancreatic head, neck, and body are unremarkable. The pancreatic tail is obscured by bowel gas. Abdominal aorta and inferior vena cava: The visualized portions of the abdominal aorta and inferior vena cava are normal in caliber. There is no free fluid in the right upper quadrant. US/US abdomen vasquez w elastography IMPRESSION: Unremarkable right upper quadrant ultrasound. The median shear wave velocity in the liver is 2.00 m/s, corresponding to a median liver stiffness of 12.35 kPa. The IQR/median value is 0.21. This is indicative of a poor quality data set, and the estimated liver stiffness may be unreliable. Findings are indicative of a high elastography value suggestive of compensated advanced chronic liver disease. REFERENCE: Society of Radiologists in Ultrasound Liver Stiffness Thresholds (2020): LIVER STIFFNESS THRESHOLDS: *Shear wave velocity less than 1.3 m/s (Liver Stiffness equal or less than 5 kPa): High probability of being normal. *Shear wave velocity less than 1.7 m/s (Liver Stiffness less than 9 kPa): In the absence of other known clinical signs, rules out compensated advanced chronic liver disease. *Shear wave velocity between 1.7-2.1 m/s (Liver Stiffness 9-13 kPa): Suggestive of compensated advanced chronic liver disease but need further test for confirmation. *Shear wave velocity between 2.1-2.4 m/s (Liver Stiffness 13-17 kPa): Rules in compensated advanced chronic liver disease. *Shear wave velocity greater than 2.4 m/s (Liver Stiffness over 17 kPa): Suggestive of clinically significant portal hypertension. QUALITY OF DATA SET: *IQR/Median value equal or less than 0.15 implies a quality data set. *IQR/Median value over 0.15 implies a poor quality data set. SIGNIFICANT CHANGE FROM PRIOR EXAM: Significant change if liver stiffness measurement is 10% or greater from prior exam. OTHER CONSIDERATIONS: The stage of liver fibrosis may be overestimated in the setting of acute hepatitis, liver inflammation, elevated liver function tests, hepatic vascular congestion, obstructive cholestasis, non-fasting state, and infiltrative diseases such as amyloidosis and lymphoma. In some patients with NAFLD, the liver stiffness thresholds for compensated advanced chronic liver disease may be lower. In causes other than viral hepatitis and NAFLD, liver stiffness thresholds are not well established. Electronically signed by: Dany Ortez MD 11/14/2024 08:38 AM EDT
--- OUTSIDE RECORDS SUMMARY | 2024-11-14 07:26 | XMS_ITS | Encounter Summary ---
Author Organization [employer] Address [address] [place] [address] Care Team Providers Care Commuter Pilot Name Role Phone Name, Giovanni WEST Primary Care Provider [phone] Encounter Details Date Type Department Care Team (Late st Contact Info) Description 04/08/2023 Abstract [facility] [address] [place], [place] [phone] Name, MD Giovanni [address] [place], [place] [phone] Social History Tobacco Use Types Packs/Day Years [...] Care Team (Late st Contact Info) Description 12/27/2024 2:00 PM EDT Office Visit [facility] [address] [place] [address] NameGiovanni MD [address] [place] [address] 04/24/2025 8:00 AM EST Office Visit [facility] [address] [place], [place] [phone] Trinidad Smith [address] [place], [place] [phone] documented as of this encounter Visit Diagnoses Not on filedocumented in this encounter Additional Health Concerns Assessment Noted Time PHQ-9 Depression Total Score: 0 08/19/19 23 9:11 AM EDT documented as of this encounter Care Teams Commuter Pilot Relationship Specialty Start Date End Date NameGiovanni MD [address] [place] [address] PCP - General Family Medicine 05/29/15 documented as of this encounter
--- OUTSIDE RECORDS SUMMARY | 2024-11-14 07:26 | XMS_ITS | Patient Health Record ---
Author Organization [facility] Address [address] [place] [address] Care Team Providers Care Worship Pastor Name Role Phone Dany Hernandez Unavailable [phone] Reason For Referral No Information Plan Of Treatment No Information
== END 2024-11-14 07:24 | disposition home or self-care (01) ==
LOC: HO.US 07:23
PROVIDERS: PCP Internal Medicine Geriatric Medicine; Visit Provider Internal Medicine Geriatric Medicine
DX: K76.0 Fatty (change of) liver, not elsewhere classified (principal); K74.01 Hepatic fibrosis, early fibrosis
CPT/HCPCS: 76705; 76981

== ENCOUNTER → 2024-11-14 07:25 | Outpatient (BNV) | payer OTHER, SELFPAY | PROVIDERS: PCP Internal Medicine Geriatric Medicine; Visit Provider Radiology Diagnostic Radiology | DX: K76.0 Fatty (change of) liver, not elsewhere classified (principal) | CPT/HCPCS: 76705; 76981 ==

== ENCOUNTER 2024-12-29 06:46 | Outpatient (REF) | payer OTHER, SELFPAY ==
--- OUTSIDE RECORDS SUMMARY | 2024-12-29 06:49 | XMS_ITS | Encounter Summary ---
Author Organization [employer] Address [address] [place] [address] Care Team Providers Care Supervisor Pleating Name Role Phone Name, Giovanni WEST Primary Care Provider [phone] Encounter Details Date Type Department Care Team (Late st Contact Info) Description 04/08/2023 Abstract [facility] MEDICINE [address] [place] [address] Name, MD Giovanni [address] [place], [place] [phone] Social History Tobacco Use Types Packs/Day Years Used Date Smoking Tobacco: Never Smokeless Tobacco: Never Alcohol Use Standard Drinks/Week Comments Yes 0 (1 standard drink = 0.6 oz pur e alcohol) Depression Answer Date Recorded Patient Health Questionnaire-9 Score 0 08/18/2022 Housing Stability Answer Date Recorded What is your housing situation today? I have ahmidaclaudia gao 02/23/[address] you [...] Care Team (Late st Contact Info) Description 03/20/2025 11:30 AM EST Office Visit [facility] [address] [place] [address] Name, MD Giovanni [address] [place] [address] 04/24/2025 8:00 AM EST Office Visit [facility] [address] [place], [place] [phone] Trinidad Smith [address] [place], [place] [phone] documented as of this encounter Visit Diagnoses Not on filedocumented in this encounter Additional Health Concerns Assessment Noted Time PHQ-9 Depression Total Score: 0 08/19/19 23 9:11 AM EDT documented as of this encounter Care Teams Supervisor Pleating Relationship Specialty Start Date End Date Name, MD Giovanni [address] [place] [id number] PCP - General Family Medicine 05/29/15 documented as of this encounter
[2024-12-29 07:45] LABS: Alanine Aminotransferase 42 U/L (0-40); Albumin Level 4.8 g/dL (3.5-5.0); Alkaline Phosphatase 51 U/L (39-117); Anion Gap 12 (12-20); Aspartate Amino Transferase 44 U/L (5-37); Blood Urea Nitrogen 18 mg/dL (9-16); Calcium 9.6 mg/dL (8.4-10.2); Carbon Dioxide 25 mmol/L (22-29); Chloride 107 mmol/L (96-108); Estimated Glomerular Filt Rate > 60; Potassium 4.9 mmol/L (3.3-5.1); Sodium 139 mmol/L (135-145); Total Protein 7.3 g/dL (6.5-8.0)
== END 2024-12-29 06:47 | disposition home or self-care (01) ==
LOC: HO.LAB 06:46
PROVIDERS: PCP Internal Medicine Geriatric Medicine; Visit Provider Internal Medicine Geriatric Medicine
DX: K76.0 Fatty (change of) liver, not elsewhere classified (principal)
CPT/HCPCS: 36415; 80053

== ENCOUNTER 2025-03-23 07:01 | Outpatient (REF) | payer OTHER, SELFPAY ==
--- OUTSIDE RECORDS SUMMARY | 2025-03-20 11:30 | XMS_ITS | Encounter Summary ---
Author Organization [employer] Address [address] [place] [address] Care Team Providers Care Java Designer Name Role Phone Name, Giovanni WEST Primary Care Provider [phone] Reason for Visit * Reason Comments Follow-up Encounter Details Date Type Department Care Team ([facility] Contact Info) Description 03/20/2025 11:30 AM EST Office Visit [facility] [address] [place], [place] [phone] Name, MD Giovanni [address] [place] [address] Steatosis of liver (Primary Dx); Elevated blood pressure reading in office without diagnosis of hypertension; Right groin pain Social History Tobacco Use Types Packs/Day Years Used Date Smoking Tobacco: Never Passive Smoke Exposure: Never Smokeless Tobacco: Never Tobacco Cessation:Counseling Given: [...] Sign Reading Time Taken Comments Blood Pressure 123/85 03/20/2025 11:52 AM EST Pulse 77 03/20/2025 11:39 AM EST Temperature 36.8 C (98.3 F) 03/20/2025 11:39 AM EST Respiratory Rate 14 03/20/2025 11:39 AM EST Oxygen Saturation 97% 03/20/2025 11:39 AM EST Inhaled Oxygen Concentration - - Weight 83.6 kg (184 lb 6 oz) 03/20/2025 11:39 AM EST Height 165.1 cm (5' 5 ) 03/20/2025 11:39 AM EST Body Mass Index 30.68 03/20/2025 11:39 AM EST documented in this encounter Progress Notes * Giovanni Anthony MD - 03/20/2025 11:30 AM EST Subjective Patient ID: Jin Colon is a 50 y.o. male who presents for Follow-up. Patient comes for follow-up visit. He is doing very well. The patient is exercising, he changed hisdiet, he is not drinking alcohol. He has been doing all of these changes because of his diagnosis of fatty liver. Today his blood pressure was initially elevated. Repeat blood pressure is normal. He has a blood pressure monitor at home and his BP is usually normal at home. Review of Systems Constitutional: Negative for chills, fatigue and fever. HENT: Negative for sore throat. Respiratory: Negative for cough, chest tightness and shortness of breath. Cardiovascular: Negative for chest pain, palpitations and leg swelling. Gastrointestinal: Negative for abdominal pain and blood in stool. Objective Vitals: 03/20/25 1139 03/20/25 1152 BP: (!) 152/90 123/85 BP Location: Right arm Patient Position: Sitting BP Cuff Size: Adult Pulse: 77 Resp: 14 Temp: 98.3 ??F (36.8 ??C) TempSrc: Oral SpO2: 97% Weight: 184 lb 6 oz (83.6 kg) Height: 5' 5 (1.651 m) Physical Exam Constitutional: Appearance: Normal appearance. Cardiovascular: Rate and Rhythm: Normal rate and regular rhythm. Pulmonary: Effort: Pulmonary effort is normal. No respiratory distress. Abdominal: General: There is no distension. Palpations: Abdomen is soft. Tenderness: There is no abdominal tenderness. Musculoskeletal: Right lower leg: No edema. Left lower leg: No edema. Neurological: Mental Status: He is alert. Assessment/Plan Diagnoses and all orders for this visit: Steatosis of liver Comments: Patient is congratulated. He is encouraged to continue current diet and exercise regimen. Continue to avoid alcohol. Recheck CMP. Orders: - Comprehensive Metabolic Panel; Future Elevated blood pressure reading in office without diagnosis of hypertension Comments: Repeat blood pressure is normal. I recommended to bring me the record of his BP readings at home. Right groin pain Comments: Today he complains of occasional right groin pain. He does not have any symptoms today. He has symptoms on and off for several years following a right inguinal surgery to remove a lipoma. He does nothave any trauma, no scrotal swelling. I did not recommend further workup for now. I suspect symptoms are related to his old surgery. I will obtain the surgical records from [facility]. He tells me he had a surgery back in 2016. Future Appointments Date Time Provider Department Center 04/24/2025 8:00 AM Trinidad [facility] documented in this encounter Plan of Treatment Upcoming Encounters Date Type Department Care Team (Late st Contact Info) Description 04/24/2025 8:00 AM EST Office Visit [facility] [address] [place], [place] [phone] Trinidad Smith [address] [place], [place] [phone] Scheduled Orders Name Type Priority Associated Diagnoses Orde r Schedule Comprehensive Metabolic Panel Lab Routine Steatosis of liver Expected: 03/20/2025 (Approximate), Expires: 03/20/2026 documented as of this encounter Visit Diagnoses Diagnosis Steatosis of liver- Primary Other chronic nonalcoholic liver disease Elevated blood pressure reading in office without diagnosis of hypertension Right groin pain Abdominal pain, right lower quadrant documented in this encounter Additional Health Concerns Assessment Noted Time PHQ-9 Depression Total Score: 0 09/22/19 25 9:27 AM EDT documented as of this encounter Care Teams Java Designer Relationship Specialty Start Date End Date Name, MD Giovanni [address] [place] [address] PCP - General Family Medicine 05/29/15 documented as of this encounter
--- OUTSIDE RECORDS SUMMARY | 2025-03-23 07:04 | XMS_ITS | Patient Health Record ---
Author Organization [facility] Address [address] [place] [address] Care Team Providers Care Ice Handler Name Role Phone Dany Hernandez Unavailable [phone] Reason For Referral No Information Plan Of Treatment No Information
--- OUTSIDE RECORDS SUMMARY | 2025-03-23 07:04 | XMS_ITS | Encounter Summary ---
Author Organization [employer] [facility] Address [address] [place] [address] [address] [place] [address] Care Team Providers Care Chair Trimmer Name Role Phone Name, Giovanni WEST Primary Care Provider [phone] Encounter Details Date Type Department Care Team (Late st Contact Info) Description 04/23/2022 Orders Only [facility] [address] [place], [place] [phone] Wen Hutchinson LPN Social History Tobacco Use [...] Description 04/24/2025 8:00 AM EST Office Visit [facility] [address] [place], [place] [phone] Trinidad Smith [address] [place], [place] [phone] documented as of this encounter Visit Diagnoses Not on filedocumented in this encounter Care Teams Chair Trimmer Relationship Specialty Start Date End Date Name, MD Giovanni [address] [place] [address] PCP - General Family Medicine 05/29/15 documented as of this encounter
--- OUTSIDE RECORDS SUMMARY | 2025-03-23 07:04 | XMS_ITS | Encounter Summary ---
Author Organization [employer] [facility] Address [address] [place] [address] [address] [place] [address] Care Team Providers Care Bodybuilder Name Role Phone Name, Giovanni WEST Primary Care Provider [phone] Encounter Details Date Type Department Care Team (Latest Contact Info) Description 12/23/2021 Abstract [facility] Dental, Provider, DDS Social History [...] Description 04/24/2025 8:00 AM EST Office Visit [facility] D[facility]AL [address] [place], [place] [phone] Trinidad Smith [address] [place], [place] [phone] documented as of this encounter Visit Diagnoses Not on filedocumented in this encounter Care Teams Bodybuilder Relationship Specialty Start Date End Date Name, MD Giovanni [address] [place] [address] PCP - General Family Medicine 05/29/15 documented as of this encounter
--- OUTSIDE RECORDS SUMMARY | 2025-03-23 07:04 | XMS_ITS | Encounter Summary ---
Author Organization [employer] [facility] Address [address] [place] [address] [address] [place] [address] Care Team Providers Care Paving Foreman Name Role Phone Name, Giovanni WEST Primary Care Provider [phone] Encounter Details Date Type Department Care Team (Latest Contact Info) Description 04/18/2020 Abstract [facility] CONVERSIONS Dental, Provider, DDS Social History Tobacco [...] Description 04/24/2025 8:00 AM EST Office Visit [facility] D[facility]AL [address] [place] [address] Trinidad Smith [address] [place], [place] [phone] documented as of this encounter Visit Diagnoses Not on filedocumented in this encounter Care Teams Paving Foreman Relationship Specialty Start Date End Date Name, MD Giovanni [address] [place] [address] PCP - General Family Medicine 05/29/15 documented as of this encounter
--- OUTSIDE RECORDS SUMMARY | 2025-03-23 07:04 | XMS_ITS | Encounter Summary ---
Author Organization [employer] Address [address] [place] [address] Care Team Providers Care Cylinder Inspector And Tester Name Role Phone Name, Giovanni WEST Primary Care Provider [phone] Encounter Details Date Type Department Care Team (Latest Contact Info) Description 03/20/2025 Travel Social History Tobacco Use Types Packs/Day Years Used Date Smoking Tobacco: Never Passive Smoke Exposure: Never Smokeless Tobacco: Never Alcohol Use Standard [...] Description 04/24/2025 8:00 AM EST Office Visit [facility] DENTAL [address] [place], [place] [phone] Trinidad Smith [address] [place], [place] [phone] documented as of this encounter Visit Diagnoses Not on filedocumented in this encounter Additional Health Concerns Assessment Noted Time PHQ-9 Depression Total Score: 0 09/22/19 25 9:27 AM EDT documented as of this encounter Care Teams Cylinder Inspector And Tester Relationship Specialty Start Date End Date Name, MD Giovanni [address] [place] [address] PCP - General Family Medicine 05/29/15 documented as of this encounter
--- OUTSIDE RECORDS SUMMARY | 2025-03-23 07:04 | XMS_ITS | Encounter Summary ---
Author Organization [employer] Address [address] [place] [address] Care Team Providers Care Geothermal Operations Engineer Name Role Phone Name, Giovanni WEST Primary Care Provider [phone] Reason for Visit * Reason Onset Date Comments chart prep 2025 Encounter Details Date Type Department Care Team ([facility] st Contact Info) Description 2025 Telephone [facility] MEDICINE [address] [place], [place] [phone] Joseph Pérez MA chart prep Social History Tobacco Use Types Packs/Day Years [...] is your housing situation today? I have hamidaclaudia gao 09/21/[address] you [...] t he electric, gas, oil or water [employer] threatened to shut off services in your [...] encounter Miscellaneous Notes * Telephone Encounter - Joseph Pérez MA - 2025 1:08 PM EST Chart Prep Labs: done Images: done Referrals: complete e 11/14/24 8:00 AM [facility] Vaccines due: Covid, Flu, PCV20, Hep B, Hep A, and Zoster Screenings: not applicable Overdue care gaps: Not applicable documented in this encounter Plan of Treatment Upcoming Encounters Date Type Department Care Team ([facility] st Contact Info) Description 04/24/2025 8:00 AM EST Office Visit [facility] [address] [place] [address] Trinidad Smith [address] [place] [address] documented as of this encounter Visit Diagnoses Not on filedocumented in this encounter Additional Health Concerns Assessment Noted Time PHQ-9 Depression Total Score: 0 09/22/19 25 9:27 AM EDT documented as of this encounter Care Teams Geothermal Operations Engineer Relationship Specialty Start Date End Date Name, MD Giovanni [address] [place] [address] PCP - General Family Medicine 05/29/15 documented as of this encounter
--- OUTSIDE RECORDS SUMMARY | 2025-03-23 07:04 | XMS_ITS | Encounter Summary ---
Author Organization [employer] [facility] Address [address] [place] [address] [address] [place] [address] Care Team Providers Care Pearl Restorer Name Role Phone Name, Giovanni WEST Primary Care Provider [phone] Encounter Details Date Type Department Care Team (Latest Contact Info) Description 06/07/2018 Abstract [facility] CONVERSIONS Dental, Provider, DDS Social History [...] Description 04/24/2025 8:00 AM EST Office Visit [facility] DENTAL [address] [place], [place] [phone] Trinidad Smith [address] [place], [place] [phone] documented as of this encounter Visit Diagnoses Not on filedocumented in this encounter Care Teams Pearl Restorer Relationship Specialty Start Date End Date Name, MD Giovanni [address] [place] [address] PCP - General Family Medicine 05/29/15 documented as of this encounter
--- OUTSIDE RECORDS SUMMARY | 2025-03-23 07:04 | XMS_ITS | Clinical Summary ---
Author Organization [employer] Address [address] [facility] [address] [place] [address] Care Team Providers Care Seconds Inspector Name Role Phone Name, Giovanni WEST Primary Care Provider Allergies Active Allergy Reactions Criticality Noted Date Comments Bee Pollen Anaphylaxis High 06/15/2022 Bee Venom 09/21/2018 Medications acetaminophen (Tylenol) 500 MG tablet Take 2 tablets by mouth in the morning and 2 tablets at noon and 2 tablets in the evening and 2 tablets before bedtime. 2 Active EPINEPHrine (EpiPen 2-Jt) 0.3 MG/0.3ML injection syringe Inject 0.3 mL into the muscle. 2 Active albuterol 108 (90 Base) MCG/ACT inhaler Inhale 2 puffs every 6 (six) hours if needed for wheezing. 18 g 11 4 Active triamcinolone (Kenalog) 0.1 % ointmentIndicati ons:Eczema, unspecified type Apply topically 2 times daily. 80 g 2 5 Active clobetasol (Temovate) 0.05 % gel Apply thin layer to the affected skin twice a day 60 g 5 Active hydrOXYzine HCl (Atarax) 25 MG tabletIndication s:Eczema, unspecified type Take 1 tablet (25 mg) by mouth if needed at bedtime for itching. 90 tablet 2 5 09/22/19 26 Active meloxicam (Mobic) 7.5 MG tablet Take 1 tablet (7.5 mg) by mouth Once per day. 30 tablet 11 5 09/22/19 26 Active Active Problems Problem Noted Date Diagnosed Date Rosacea 09/21/2024 Essential hypertension 08/18/2022 Onychomycosis 05/16/2018 02/23/2023 Chronic neck pain 03/04/2017 02/23/2023 Steatosis of liver 02/07/2016 Lipoma of skin and subcutaneous tissue of neck 0 02/07/2016 02/23/2023 Cervical spondylosis 07/09/2015 Resolved Problems Problem Noted Date Diagnosed Date Resolved Date Right inguinal hernia 08/11/20232024 Right inguinal pain 02/23/2023 02/23/2023 09/22/19 Encounters Date Type Department Care Team Description 03/20/2025 11:30 AM EST Office Visit [address] [address] Giovanni Anthony MD Steatosis of liver (Primary Dx); Elevated blood pressure reading in office without diagnosis of hypertension; Right groin pain 03/20/2025 Travel [address] [address] Joseph Pérez [place] chart prep 12/27/2024 2:00 PM EDT Office Visit [address] [address] Giovanni Anthony MD Steatosis of liver (Primary Dx); Elevated blood pressure reading in office without diagnosis of hypertension 12/27/2024 Travel 12/26/2024 Travel 12/26/[address] [address] Luis Rodríguez [place] CHARTPREP 12/22/2024 Orders Only [address] [address] Giovanni Anthony MD from Last 3 Months Immunizations Immunization Administration [...] Mass Index 30.68 03/20/2025 11:39 AM EST Plan of Treatment Upcoming Encounters Date Type Department Care Team (Late st Contact Info) Description 04/24/2025 8:00 AM EST Office Visit [facility] [address] [place], [place] [phone] Trinidad Smith [address] [place], [place] [phone] Health Maintenance Due Date Last Done Comments [...] Years (1 of 1 - PCV) 2023 RSV Patients and Patients Aged 60 years or older (1 - Risk 50-74 years 1-dose series) 2023 Zoster Vaccines (1 of 2) 2023 Diabetes: Hemoglobin A1C 08/27/2023 023, 02/02/2022, 04/12/2019 Dental X-Ray: Bitewings 02/25/2024 02/23/2023 COVID-19 Vaccine ( season) 2025 03/21/2021, 06/20/2020, 05/23/2020 Influenza Vaccine (#1) 2025 Dental Oral Exam 04/20/2025 10/18/2024, 09/06/2023 Dental Prophylaxis 04/20/2025 10/18/2024, 1 06/18/2023, 09/06/2023, Additional history exists Alcohol/Substance Use Screening 09/21/2025 09/21/2024 Depression Screening 09/21/2025 09/21/2024, 09/22/19 25 Disability Screening 09/21/2025 09/21/2024 SDOH Screening 09/21/2025 09/21/2024 Tobacco Screening 03/20/2026 03/20/2025 Lipid Panel 09/21/2029 09/21/2024, 04/0 07/2023, 08/26/2022, Additional history exists DTaP/Tdap/Td Vaccines (3 - Td or Tdap) 08/20/2031 08/19/2021, 08/13/2011 Colonoscopy 06/18/2033 06/18/2023 Colorectal Cancer Screening 06/18/2033 Hepatitis C Screening Completed 12/06/2020 HIB Vaccines [...] Procedure Name Priority Date/Time Associated Diagnosis Comments COMPREHENSIVE METABOLIC PANEL Routine 12/29/2024 6:54 AM EDT Steatosis of liver PROPHYLAXIS - ADULT Routine 10/18/2024 8 :00 AM EDT PERIODIC ORAL EVALUATION - ESTABLISHED PATIENT Routine 10/18/2024 8:00 AM EDT LIPID PANEL, STANDARD Routine 09/21/2024 10:16 AM EDT Essential hypertension Obesity (BMI 30-39.9) Screening for cholesterol level Prediabetes Vaccine refused by patient Screening for prostate cancer Eczema, unspecified type HM COLONOSCOPY Routine 06/18/2023 BITEWINGS - 4 RADIOGRAPHIC IMAGES Routine 02/23/2023 3:00 PM EDT HEMOGLOBIN A1C Routine 08/26/2022 12:34 PM EDT Screening for diabetes mellitus ZZZ HISTORICAL HEPATITIS C AB W/REFL TO HCV RNA, QN, PCR Routine 12/06/2020 9:50 AM EDT from Last 3 Months or Most Recently Relevant to Health Maintenance Results * (ABNORMAL) Comprehensive Metabolic Panel (12/29/2024 6:54 AM EDT) Sodium 139 135 - 145 mmol/L [facility] Potassium 4.9 3.3 - 5.1 mmol/L [facility] Chloride 107 96 - 108 mmol/L [facility] Carbon Dioxide 25 22 - 29 mmol/L [facility] Anion Gap 12 12 - 20 [facility] Urea Nitrogen (BUN) 18(H) 9 - 16 mg/dL [facility] Creatinine, Serum 1.02 0.5 - 1.4 mg/dL [facility] Estimated Glomerular Filt Rate >60 [facility] Comment:Chronic Kidney Disea se: Estimated GFR < 60 mL/min/[id number] Kidney Disease: Estimated GFR < 15 mL/min/1.73m2 Glucose 107 60 - 115 mg/dL [facility] Calcium 9.6 8.4 - 10.2 mg/dL [facility] Bilirubin, Total 0.5 0.0 - 1.0 mg/dL [facility] Aspartate Amino Transferase 44(H) 5 - 37 U/L [facility] Alanine Aminotransferase 42(H) 0 - 40 U/L [facility] Total Protein 7.3 6.5 - 8.0 g/dL [facility] Albumin Level 4.8 3.5 - 5.0 g/dL [facility] Alkaline Phosphatase 51 39 - 117 U/L [facility] Blood Venous blood specimen / Unknown 12/29/2024 6:54 AM EDT 12/29/2024 6:54 AM EDT us Giovanni Name MD LAB BLOOD ORDERABLES Final Resul t [facility] [address] [place] [address] [phone] * (ABNORMAL) Lipid Panel, Standard (09/21/2024 10:16 AM EDT) Triglycerides 122 <150 mg/dL [facility] Comment:Desirable Triglyceri de: less than 150 mg/dLBorderline High Triglyceride 150-199 mg/dLHigh Triglyceride: 200-499 mg/dLVery High Triglyceride: greater than or equal to 5OO mg/dL Cholesterol 183 <200 mg/dL [facility] Comment:Desirable Cholestero l: less than 200 mg/dLBorderline High Cholesterol: 200-239 mg/dLHigh Cholesterol: greater than 239 mg/dL LDL Cholesterol Calculated 107(H) <100 mg/dL [facility] Comment:Desirable LDL: less than 100 mg/dLNear Optimal/Above Optimal LDL: 110- 129 mg/dLBorderline High LDL: 130-159 mg/dLHigh LDL: 160-189 mg/dLVery High LDL: greater than or equal to 190 mg/dL HDL Cholesterol 52 >40 mg/dL [facility] Comment:Desirable HDL: great er than 40 mg/dL Note: This HDL assay may give artificially low results in patients with liver disease. Blood Venous blood specimen / Unknown 09/21/2024 10:16 AM EDT 09/21/2024 11:33 AM EDT us Giovanni Anthony MD LAB BLOOD ORDERABLES Final Resul t [facility] [address] [place] [phone] * Hm Colonoscopy (06/18/2023) Colonoscopy Normal Normal us Giovanni Anthony MD HEALTH MAINTENANCE Final Result * (ABNORMAL) Hemoglobin A1c (08/26/2022 12:34 PM EDT) Hemoglobin A1c 5.9(H) <5.7 % of total Hgb [facility] Comment: For someone without known diabetes, a [...] 08/27/2022 4:55 AM EDT FASTING:YES FASTING: YES Giovanni Anthony MD LAB BLOOD ORDERABLES Final Resul t Performing Organization Address City/[facility] Co de Phone Number [facility] [address], [place] [address] [facility] [address] [place] [address] * HEPATITIS C AB W/REFL TO HCV RNA, QN, PCR (12/06/2020 9:50 AM EDT) HEPATITIS C ANTIBODY NON-REACT [facility] INDEX 0.01 <1.00 [facility] Comment: HCV antibody was non-reactive. There is no laboratory evidence of HCV infection. In most cases, no further action is required. However, if recent HCV exposure is suspected, a test for HCV RNA (test code 66933) is suggested. For additional information please refer to http://education.Woofound/faq/VKD89q7 (This link is being provided for informational/ educational purposes only.) 12/06/2020 9:50 AM EDT Giovanni Anthony MD HISTORICAL/NON ORDERABLE LABS Fi nal Result Performing Organization Address City/[facility]/ZIP Co de Phone Number [facility] [address] from Last 3 Months or Most Recently Relevant to Health Maintenance Insurance [facility] - HSN PARTIAL (MEDICAID) [facility] [place] [employer] Care Teams Seconds Inspector Relationship Specialty Start Date End Date Name, MD Giovanni [address] [place] [address] PCP - General Family Medicine 05/29/15
--- OUTSIDE RECORDS SUMMARY | 2025-03-23 07:04 | XMS_ITS | Encounter Summary ---
Author Organization [employer] Address [address] [place] [address] Care Team Providers Care Pai Gow Manager Name Role Phone Name, Giovanni WEST Primary Care Provider Encounter Details Date Type Department Care Team (Late st Contact Info) Description 04/08/2023 Abstract [facility] [address] [place] [address] Name, MD Giovanni [address] [place], [place] [phone] Social History Tobacco Use Types Packs/Day Years Used Date Smoking Tobacco: Never Smokeless Tobacco: Never Alcohol Use Standard Drinks/Week Comments Yes 0 (1 standard drink = 0.6 oz pur e alcohol) Depression Answer Date Recorded Patient Health Questionnaire-9 Score 0 08/18/2022 Housing Stability Answer Date Recorded What is your housing situation today? I have hamidaclaudia gao 02/23/[address] you [...] Description 04/24/2025 8:00 AM EST Office Visit [facility] [address] [place], [place] [phone] Trinidad Smith [address] [place], [place] [phone] documented as of this encounter Visit Diagnoses Not on filedocumented in this encounter Additional Health Concerns Assessment Noted Time PHQ-9 Depression Total Score: 0 08/19/19 23 9:11 AM EDT documented as of this encounter Care Teams Pai Gow Manager Relationship Specialty Start Date End Date Name, MD Giovanni [address] [place] [address] PCP - General Family Medicine 05/29/15 documented as of this encounter
[2025-03-23 10:57] LABS: Alanine Aminotransferase 25 U/L (0-40); Albumin Level 4.5 g/dL (3.5-5.0); Alkaline Phosphatase 49 U/L (39-117); Anion Gap 12 (12-20); Aspartate Amino Transferase 33 U/L (5-37); Blood Urea Nitrogen 16 mg/dL (9-16); Calcium 9.4 mg/dL (8.4-10.2); Carbon Dioxide 24 mmol/L (22-29); Chloride 109 mmol/L (96-108); Estimated Glomerular Filt Rate > 60; Potassium 4.2 mmol/L (3.3-5.1); Sodium 141 mmol/L (135-145); Total Protein 7.0 g/dL (6.5-8.0)
== END 2025-03-23 07:02 | disposition home or self-care (01) ==
LOC: HO.10HDL 07:01
PROVIDERS: Visit Provider Internal Medicine Geriatric Medicine
DX: K76.0 Fatty (change of) liver, not elsewhere classified (principal)
CPT/HCPCS: 36415; 80053